=== PATIENT | male | born 2000 | race Caucasian/White ===

== ENCOUNTER 2023-11-08 12:33 | Observation (INO) | payer BC, SELFPAY ==
[2023-11-08] VITALS (92 sets, daily range): BP systolic 89–138; BP diastolic 53–121; PULSE 55–104; RESP 10–30; TEMP 36.7–37.5; O2SAT 94–100
--- NOTE | 2023-11-08 12:30 | RT.EKG_ITS ---
APPROVED REPORT Exam: Resting ECG Reason for Exam: chest pain Patient Location: E HR:71 bpm ECG Measurements Heart Rate 71 AXIS RI 119 P 71 QRSd 72 QRS 71 QT 362 T 57 QTc 393 Conclusion Sinus rhythm...normal P axis, V-rate 60- 99 Low voltage, precordial leads...precordial leads <1.0mV Anterolateral Q wave, probably normal for age...Q >35mS, age<31 male, <40 female Physician: no stemi
--- NOTE | 2023-11-08 13:45 | DI.RAD_ITS ---
Exam(s) XR RIBS LT W PA LAT CHEST EXAM: XR RIBS LT W PA LAT CHEST CLINICAL HISTORY: left rib pain TECHNIQUE: 2D digital imaging was performed. Five images are obtained. COMPARISON: No exams were available for comparison FINDINGS: MEDIASTINUM: Normal. There is no midline shift. HEART: Normal. PULMONARY VASCULATURE: Normal. LUNGS: Clear. PLEURAL SPACE: There is a left pneumothorax. It is to the level of the left 4th rib. No right pneum othorax. No pleural effusion. BONE:Within normal limits for the patient's age. LEFT RIBS: Normal. OTHER FINDINGS:Normal. IMPRESSION: 1. There is a left-sided pneumothorax to the level of the left 4th rib. It is small to moderate in s ize. 2. The lungs are clear. There is no midline shift of the mediastinum. 3. Unremarkable left ribs. DATA REPOSITORY: RADIATION DOSE DELIVERED:
[2023-11-08] MEDS: Ketorolac 15 MG/ML VIAL IVP (14:31)
--- NOTE | 2023-11-08 15:46 | DI.VRAD_ITS ---
Addendum created by Wilfrido Mirza MD on 11/08/2023 3:50:30 PM EDT: THIS REPORT CONTAINS FINDINGS THAT MAY BE CRITICAL TO PATIENT CARE. The findings were verbally communicated via telephone conference with Maureen Petersen at 3:50 PM EDT on 11/08/2023. The findings were acknowledged and understood. Initial report created on 11/08/2023 3:45:33 PM EDT: PROCEDURE INFORMATION: Exam: XR Left Ribs Exam date and time: 11/08/2023 2:12 PM Age: 23 years old Clinical indication: Other: Left rib pain TECHNIQUE: Imaging protocol: Radiologic exam of the left ribs. Views: 2 views. COMPARISON: No relevant prior studies available. FINDINGS: Bones/joints: No acute fracture dislocation. Soft tissues: Normal. IMPRESSION: No rib fracture identified. PROCEDURE INFORMATION: Exam: XR Chest Exam date and time: 11/08/2023 2:12 PM Age: 23 years old Clinical indication: Other: Left rib pain TECHNIQUE: Imaging protocol: Radiologic exam of the chest. Views: 2 views. COMPARISON: No relevant prior studies available. FINDINGS: Lungs: No consolidation. Pleural spaces: Small to moderate left pneumothorax. Heart/Mediastinum: Unremarkable. No cardiomegaly. Bones/joints: Unremarkable. IMPRESSION: Small to moderate left pneumothorax. Dictated and Authenticated by: Wilfrido Mirza MD. Ordering:KATHLEEN Reddy MD
--- NOTE | 2023-11-08 15:55 | ED.GENADUL_ITS ---
Discharge Plan Discharge Details Chief Complaint: Chest/Rib Primary Care Provider: Unknown,Unknown ED Provider: Maureen Geiger General Date/Time Provider Initiated Documentation: 11/08/23 12:41 . HPI Narrative: This otherwise healthy 23-year-old male with history of vaping tobacco use presents with report of rib pain on the left lower side radiating to his back for the past 5 days. He states he felt a clicking and sensation given the pers istence he presented for assessment. He denies any shortness of breath. Denies any fever or chills. Denies any history of early cardiac disease. Denies history of similar symptoms in the past. Adamantly denies any trauma calf pain or swelling. Related Data Allergies Allergy/AdvReac Type Severity Reaction Status Date / Time No Known Allergies Allergy Unverified 11/08/23 12:39 General Stated Complaint: Chest/Rib BINTA: 3 Exam Narrative Exam Narrative: Alert and oriented 23-year-old male in no acute distress, lungs clear to auscultation, cardiac rate rhythm regular, pupils equal round reactive to light and accommodation, cardiac rate rhythm regular, no abdominal tenderness, no peripheral edema or tenderness, neurovascularly intact Course Vital Signs Vital signs: Vital Signs Temperature 36.7 C 11/08/23 12:37 Pulse 76 11/08/23 12:37 Respiratory Rate 16 11/08/23 12:37 Blood Pressure 121/68 11/08/23 12:37 Pulse Oximetry 99 11/08/23 12:37 Temperature 36.7 C 11/08/23 12:37 Temperature Source Temporal Artery Scan 11/08/23 12:37 Pulse 76 11/08/23 12:37 Respiratory Rate 16 11/08/23 12:37 Respiratory Effort Normal 11/08/23 13:44 Respiratory Depth Normal 11/08/23 13:44 Respiratory Pattern Normal 11/08/23 13:44 Blood Pressure 121/68 11/08/23 12:37 Blood Pressure Position Sitting 11/08/23 12:37 Pulse Oximetry 99 11/08/23 12:37 Oxygen Delivery Method Room Air 11/08/23 12:37 Oxygen Flow Rate 0 11/08/23 12:37 Pain Level 7 11/08/23 14:31 Medical Decision Making 23-year-old male presenting with left rib pain for the past 5 days. X-ray was ordered for further evaluation and Toradol was given for pain control. On left rib series, which was ordered secondary to reproducible left lower chest wall pain, patient has approximately 10% pneumothorax. This was confirmed by the radiologist at approximately 1600. Oxygen was placed on patient approximately 20 minutes ago at 1530, he will need repeat x-ray at 1800. 15 L on nonrebreather was placed and we will reassess chest x-ray post supportive care and determine disposition. Care will be transitioned to a [facility] pending repeat x-ray@1600. Quality:[facility] Health Related Social Needs: No Data to Display [facility] Social History Smoking risk assessment performed?: No
--- NOTE | 2023-11-08 16:39 | W.EDPROG ---
Date of service: 11/08/23 Time of Service: 16:00 Medical Decision Making Patient signed out to me by Maureen SOLIS. Patient pending repeat x-ray for pneumothorax of 10% that was spontaneous. Patient risk factors of smoking. Patient in stable condition at time of signout. Will continue to monitor and follow-up on x-ray results when available or treat any change in condition 1808-reviewed repeat imaging which shows no significant change in size of pneumothorax. Rough estimated measurement at the apex is still 3 to 4 cm. Reassessed patient and patient states significant improvement in symptoms compared to initial presentation. Vital signs of remained stable no hypoxia. Will contact general surgery to discuss pigtail chest tube versus continued oxygen and observation admission with repeat imaging in the morning. Spoke to Dr. Jones on-call general surgeon whom recommended pigtail chest tube placement and 24-hour observation after procedure. He requested patient be admitted to the hospitalist and that he would consult on any change in condition of the patient. Please see Dr. Hoa Chan's procedure note for placement of the pigtail chest tube. Surgeon recommended patient admitted to medical services for observation but that he would round in the morning. Dr. Velasquez was consulted and agreed to the admission. X-rays performed before admission shows significant improvement. Quality:SDOH Health Related Social Needs: No Data to Display Exam Const General: cooperative, no acute distress and not ill appearing Orientation: alert, awake and oriented x3 HENMT Mouth: moist mucous membranes Resp Effort & Inspection: normal respiratory effort, able to speak in complete sentences and no respiratory distress Auscultation: diminished lung sounds on the left in the upper lung simmons Cardio Rate: regular rate Rhythm: regular rhythm Heart Sounds: S1 normal and S2 normal Skin General skin exam: no rashes or lesions noted Neuro General: patient alert, patient awake, patient oriented x3, moves all extremities and no focal motor deficits Sensory Exam: no sensory deficits noted Critical Care Time Critical Care Time Critical Care Time: Yes Total Critical Care Time: 45 Attestation: Due to pneumothorax with high probability of imminent or life threatening deterioration in the patient?s condition without intervention and treatment. Time spent documenting, reviewing labs and radiographs, monitoring titration/ Vital signs, and speaking with general surgeon and attending ED physician. Sign Out Sign Out Data: Sign Out Comment: pending repeat xray 1800 Last updated by Maureen Geiger PA at 11/08/23 16:03 Discharge Plan Disposition Patient Disposition: Admit to [facility] Condition: Improving Discharge Details Clinical Impression: Spontaneous pneumothorax Admit Date/Time: 11/08/23 21:38 Admit Provider: Gilmer Velasquez Attending Provider: Gilmer Velasquez Primary Care Provider: Unknown,Unknown ED Provider: Adalid Henriquez
--- NOTE | 2023-11-08 18:00 | DI.RAD_ITS ---
Exam(s) XR CHEST 2V PA LATERAL EXAM: XR CHEST 2V PA LATERAL CLINICAL HISTORY: eval left pneumo TECHNIQUE: 2D digital imaging was performed of the chest. Two images were obtained. PA and lateral views were obtained. COMPARISON: CR,XR XR RIBS LT W PA LAT CHEST from 11/08/2023 FINDINGS: MEDIASTINUM: Normal. HEART: Normal. PULMONARY VASCULATURE: Normal. LUNGS: Clear. PLEURAL SPACE: There is a persistent left pneumothorax. The pneumothorax is seen to the level of the 4th rib. This is unchanged compared to the prior examination. There is no right pneumothorax. No effusion is identified. BONE:Within normal limits for the patient's age. OTHER FINDINGS:Normal. IMPRESSION: Stable left pneumothorax. DATA REPOSITORY: RADIATION DOSE DELIVERED:
--- NOTE | 2023-11-08 18:01 | DI.VRAD_ITS ---
PROCEDURE INFORMATION: Exam: XR Chest Exam date and time: 11/08/2023 5:51 PM Age: 23 years old Clinical indication: Other: Eval left pneumo TECHNIQUE: Imaging protocol: Radiologic exam of the chest. Views: 2 views. COMPARISON: CR XR RIBS LT W PA LAT CHEST 11/08/2023 2:12 PM FINDINGS: Lungs: No consolidation. Pleural spaces: Left pneumothorax. Heart/Mediastinum: Unremarkable. No cardiomegaly. Bones/joints: Unremarkable. IMPRESSION: Persistent small to moderate left pneumothorax, not significantly changed in comparison to earlier same day radiographs. Dictated and Authenticated by: Wilfrido Mirza MD. Ordering:KATHLEEN Reddy MD
[2023-11-08] MEDS: Ketamine 500 MG/10 ML VIAL 54 MG IVP ×2 (19:25→19:40)
--- NOTE | 2023-11-08 19:30 | W.SURGCON ---
Date of service: 11/08/23 Time of Service: 19:30 Assessment and Plan Assessment and plan (1) Spontaneous pneumothorax: Status: Acute Assessment and plan: Patient 23-year-old male with a left-sided spontaneous pneumothorax. I discussed with him and his the nature of the problem and options is to observe without putting a chest tube however since this is a small hospital prefer to put a small and look about and the pigtail drain to drain the pneumothorax and admit him for observation. After discussing this with them patient wants to proceed with the placement of the Pleurx drain. Risks of the procedure which include bleeding and infection as well as misplacement were discussed with the patient who understands. Patient will be done by the emergency room physician under my guidance. History of Present Illness History of Present Illness Chief Complaint: Spontaneous pneumothorax Narrative: Patient is a otherwise healthy 33-year-old thin white male who presented to the emergency room complaining of left-sided chest pain starting at 6 AM this morning associated with pain when he takes a deep breath. He denies any severe bout of coughing or any similar pain in the past. He is not a smoker. Evaluation with a chest x-ray done by the ER physician showed evidence of a spontaneous pneumothorax approximately 3 to 4 cm in size. The patient vitals were within normal and a repeat x-ray few hours later confirmed the same size of the pneumothorax. For that reason I was consulted regarding the need for a small chest tube placement. Consults Consult date: 11/08/23 Review of Systems Narrative: 10 point review of system obtained which is essentially negative other than the history of chest pain and mild shortness of breath. Patient specifically denies any history of coughing, no GI, cardiovascular, urinary or musculoskeletal complaints. All systems reviewed & are unremarkable except as noted in HPI and below PFSH All Active Problems (Updated 11/08/23 @ 19:41 by Jay Jones MD) Spontaneous pneumothorax (Acute) Social History Smoking risk assessment performed?: No Exam Narrative Exam Narrative: Patient is awake and alert, all vitals within normal. He is sitting on the stretcher in a semirecumbent position. He is calm and cooperative. Head and neck exam shows no anemia or jaundice. Neck is supple with no lymphadenopathy and no masses. Patient is a quite thin and when asked to take a deep breath there is good expansion bilaterally. Auscultation showed reduced breath sounds on the left side and posteriorly over the apex. No wheezing. Cardiovascular shows normal sinus rhythm with no murmur. Abdomen is soft and benign, no organomegaly no tenderness. Lower extremities shows no evidence of leg edema with normal circulation. Results Last Vital Signs Temp 98.1 F 11/08/23 12:37 Pulse 65 11/08/23 16:01 Resp 19 11/08/23 16:01 BP 112/70 11/08/23 16:01 Pulse Ox 99 11/08/23 16:01 Imaging Chest x-ray: report reviewed and image reviewed
--- NOTE | 2023-11-08 19:45 | DI.RAD_ITS ---
Exam(s) XR PORTABLE CHEST AP EXAM: XR PORTABLE CHEST AP CLINICAL HISTORY: placement confirmation TECHNIQUE: 2D digital imaging was performed of the chest. One image was obtained. An AP view was ob tained. COMPARISON: CR,XR XR CHEST 2V PA LATERAL from 11/08/2023 FINDINGS: MEDIASTINUM: Normal. HEART: Normal. PULMONARY VASCULATURE: Normal. LUNGS: There is atelectasis of the left upper and left lower lobes. PLEURAL SPACE: There has been an interval increase in size of the left pneumothorax now occupying at least 50 percent of the left hemithorax. No right pneumothorax. No pleural effusion. BONE:Within normal limits for the patient's age. OTHER FINDINGS:There has been interval placement of a pigtail catheter into the left hemithorax. IMPRESSION: 1. Interval increase in size of the left pneumothorax now measuring approximately 50 percent of the l eft hemithorax. 2. Interval placement of a left chest tube. DATA REPOSITORY: RADIATION DOSE DELIVERED:
[2023-11-08] MEDS: Normal Saline 1,000 ML 1000 ML IV (20:05)
--- NOTE | 2023-11-08 20:07 | ED.PROG_ITS ---
Date of service: 11/08/23 Time of Service: 20:07 Medical Decision Making 23-year-old male presents with spontaneous left-sided pneumothorax, approximately 3 to 4 cm from apex, after period of observation and oxygen therapy pneumothorax has not improved in size. Discussed case with general surgeon who recommends placing pigtail catheter. Patient consented to sedation with ketamine as well as pigtail catheter placement. During procedure did hit some resistance in the soft tissue of the chest remove the wire briefly with needle in place I suspect this is the etiology of the increased size of pneumothorax seen on repeat x-ray however patient is oxygenating normally is hemodynamically stable he has improved lung sounds upon reassessment with good titling and bubbling of Pleur-evac. General surgeon has come to the bedside to assess patient and will follow closely upon inpatient admission. Will repeat chest x-ray in 1 hour to assess for any change. Fluids have been running, patient coming back to baseline from ketamine sedation. 20: 22 patient was comfortably hemodynamically stable. Bedside ultrasound showing good lung sliding at the apex on the left. Will perform repeat chest x- ray to confirm reexpansion at 2100 20: 47 repeat x-ray showing near full expansion of left lung, patient resting comfortably. Patient to be admitted to ICU for close monitoring of chest to hemodynamics and respiratory status Quality:SDOH Health Related Social Needs: No Data to Display Procedures Chest Tube Chest Tube 1: Chest Tube Location: anterior axillary line Chest Tube Prep: betadine prep (Chlorhexidine prep), sterile drapes applied and sterile dressing applied Local Anesthetic: Lidocaine 1% Amount of anesthesia used (mL): 3 Incision Made With: #11 blade Post Procedure: sutured to skin and sterile dressing applied Post Procedure CXR?: Yes Patient Tolerated Procedure: Yes Progress: Upon initial introduction of introducer wire met resistance in the soft tissue with kinking of the wire removed wire with needle in place, replaced syringe and assessed for bubbling upon advancement, replaced wire through introducer needle, was able to successfully place chest tube, upon repeat x-ray pneumothorax appears to have expanded likely related to the time when introducer needle was in the chest wall without syringe attached while wire was being rethreaded, no signs of tension physiology patient remains normoxic without supplemental oxygen returning to baseline after ketamine sedation, good lung sounds bilaterally increased lung sounds from prior on affected side good titling in Pleur-evac with bubbles, tubing secured will obtain repeat x-ray in 1 hour Procedural Sedation Presedation Evaluation: chest tube placement ASA Class: I Preparation: secured entrance monitor applied, pulse oximeter, capnometry used, suction/airway equipment at bedside and IV secured Ketamine dose (mg): 54 Complications: none Additional Comments: Patient tolerated sedation and procedure, coming back to baseline currently remains hemodynamically stable not requiring any supplemental oxygen or airway intervention Sign Out Sign Out Data: Sign Out Comment: pending repeat xray 1800 Last updated by Maureen Geiger PA at 11/08/23 16:03 Discharge Plan Disposition Patient Disposition: Admit to [facility] Condition: Improving Discharge Details Chief Complaint: Chest/Rib Clinical Impression: Spontaneous pneumothorax Primary Care Provider: Unknown,Unknown ED Provider: Adalid Henriquez Home Meds and New Rx's Prescriptions: No Action No Known Home Meds
--- NOTE | 2023-11-08 20:15 | DI.RAD_ITS ---
Exam(s) XR PORTABLE CHEST AP POST LINE EXAM: XR PORTABLE CHEST AP POST LINE CLINICAL HISTORY: post chest tube placement TECHNIQUE: 2D digital imaging was performed of the chest. One image was obtained. An AP view was ob tained. COMPARISON: CR,XR XR PORTABLE CHEST AP from 11/08/2023 FINDINGS: MEDIASTINUM: Normal. HEART: Normal. PULMONARY VASCULATURE: Normal. LUNGS: There is been expansion of the left lung without infiltrate. The right lung remains clear and well expanded. PLEURAL SPACE: There has been significant decrease in size of the left pneumothorax with a tiny resid ual left apical pneumothorax located above the left 3rd rib. BONE:Within normal limits for the patient's age. OTHER FINDINGS:The left chest tube is present along the lateral aspect of the left mid hemithorax. IMPRESSION: 1. Decrease in size of the left pneumothorax with a tiny residual left apical pneumothorax present. 2. Interval re-expansion of the left lung. DATA REPOSITORY: RADIATION DOSE DELIVERED:
[2023-11-08] MEDS: HYDROmorphone 2 MG/ML SYR 0.5 MG IVP (20:25)
--- NOTE | 2023-11-08 20:30 | DI.VRAD_ITS ---
Addendum created by Sha Lacey MD on 11/08/2023 8:35:12 PM EDT: THIS REPORT CONTAINS FINDINGS THAT MAY BE CRITICAL TO PATIENT CARE. The findings were verbally communicated via telephone conference with Dr. Gardner at 8:34 PM EDT on 11/08/2023. The findings were acknowledged and understood. Initial report created on 11/08/2023 8:30:24 PM EDT: PROCEDURE INFORMATION: Exam: XR Chest Exam date and time: 11/08/2023 7:54 PM Age: 23 years old Clinical indication: Other: Placement confirmation TECHNIQUE: Imaging protocol: Radiologic exam of the chest. Views: 1 view. COMPARISON: CR XR CHEST 2V PA LATERAL 08/11/2023 17:51 FINDINGS: Tubes, catheters and devices: Interim placement of a pigtail thoracotomy tube with the tip overlying the mid left thoracic cavity. Lungs: There is no evidence of focal pulmonary consolidation. Pleural spaces: A large left pneumothorax is identified of greater than 50% of the left lung volume larger than on the comparison examination. Heart/Mediastinum: Normal in size. Bones/joints: No acute fracture is identified. IMPRESSION: 1. A pigtail thoracotomy tube with the tip overlying the mid left thoracic cavity. 2. A large left pneumothorax greater than is present of the left lung volume i the the the the the the s present. Dictated and Authenticated by: Sha Lacey MD. Ordering:HANNAH Cordoba MD
--- NOTE | 2023-11-08 21:20 | DI.VRAD_ITS ---
PROCEDURE INFORMATION: Exam: XR Chest Exam date and time: 11/08/2023 8:45 PM Age: 23 years old Clinical indication: Other: Post chest tube placement TECHNIQUE: Imaging protocol: Radiologic exam of the chest. Views: 1 view. COMPARISON: XR PORTABLE CHEST AP 08/11/2023 19:54 FINDINGS: Tubes, catheters and devices: Redemonstration of the pigtail thoracotomy catheter overlying the periphery of the mid left hemithorax. Lungs: There has been interim complete re-expansion of the lung. No pulmonary consolidation. Pleural spaces: No pleural effusion or pneumothorax. Heart/Mediastinum: Normal in size. Bones/joints: No acute fracture is identified. IMPRESSION: Complete re-expansion of the left lung following placement of the left pigtail thoracotomy catheter. Dictated and Authenticated by: Sha Lacey MD. Ordering:CONNOR Roe MD
--- NOTE | 2023-11-08 21:27 | HPE_ITS ---
Date of service: 11/08/23 Time of Service: 21:27 Assessment and Plan Assessment and plan (1) Spontaneous pneumothorax: Status: Acute Assessment and plan: Spontaneous pneumothorax, now re-expanded with chest tube in place. Will leave tube to suction per surgical input and further management per surgery. No medical issues at this time. History of Present Illness History of Present Illness Chief Complaint: CP Narrative: 23 male reports sudden onset sharp left sided chest pain last night. In ER evaluation demonstrated 10% PTX on left. After period of observation with no improvement surgery was consulted and advised chest tube. Tube placed with some difficulty, and post-procedure showed increase PTX approx 50%, but after suction lung fully re-expanded. I was asked to evaluate for admission. At present time patient states that other than some discomfort at insertion site he feels fine. 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 Declines to admit patient and requests that I admit to Medicine with consult to Surgery for management of chest tube. Review of Systems Narrative: per HPI PFSH All Active Problems (Updated 11/08/23 @ 21:33 by Bhupinder Vázquez MD) Spontaneous pneumothorax (Acute) Social History Smoking risk assessment performed?: No Meds Allergies and Home Medications Allergies Allergy/AdvReac Type Severity Reaction Status Date / Time No Known Allergies Allergy Unverified 11/08/23 12:39 Home Medications Medication Instructions Recorded Confirmed Type Unknown [No Known Home Meds] 11/08/23 11/08/23 History Exam Narrative Exam Narrative: 133/79, 87, 36.7, 20 95% RA. HEENT unremarkable; neck supple, trachea mid-line; lungs clear with equal BS bilaterally; heart RRR; abdomen soft and NT; extremities w/o edema; neuro Ox3, lucid, moves all 4s Results Last Vital Signs Temp 36.7 C 11/08/23 12:37 Pulse 87 11/08/23 20:32 Resp 20 11/08/23 20:32 BP 133/79 11/08/23 20:32 Pulse Ox 95 11/08/23 20:32 Time Spent Time spent with Patient: 40-54 minutes Time was spent: preparing to see the patient(eg.review tests), obtaining and/or reviewing separately otained hiistory, ordering medications,tests, procedures, referring, communicating with other health medicare compliance auditor and indepentently interpreting results
[2023-11-09] VITALS (14 sets, daily range): BP systolic 101–126; BP diastolic 62–78; PULSE 50–79; RESP 11–21; TEMP 36.5–37.2; O2SAT 95–98
--- NOTE | 2023-11-09 08:47 | PGE_ITS ---
Date of Service Date of service: 11/09/23 Time of Service: 08:47 Assessment and Plan Assessment and plan (1) Spontaneous pneumothorax: Status: Acute Assessment and plan: Spontaneous pneumothorax, now re-expanded with chest tube in place. 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 No other medical issues, so will pass off to Surgery to manage this case, confirmed with Dr. Lowe. Subjective Subjective Patient reports: no new complaints; denies nausea, vomiting or fever Interval history since last seen: He is comfortable at rest, mild pain with deep breath. He didn't like feeling of ketamine when the tube went in. No SOB at rest Exam Narrative Exam Narrative: HEENT unremarkable; neck supple, trachea mid-line; lungs clear, no rales/wheeze but less audible on left; heart RRR; abdomen soft and NT; extremities w/o edema Objective Last Vital Signs Temp 36.5 C 11/09/23 07:28 Pulse 60 11/09/23 07:01 Resp 16 11/09/23 07:28 BP 121/78 11/09/23 07:01 Pulse Ox 95 11/09/23 07:28 PAWSS Have you Been Recently Intoxicated or Drunk Within the Last 30 days?: No Have you Ever Experienced Previous Episodes of Alcohol Withdrawal?: No Have you ever Experienced Withdrawal Seizures?: No Have you ever Experienced Delirium Tremens(DT)s?: No Have you ever undergone Alcohol Rehabilitation Treatment (i.e, inpt ot outpatient treatment programs)?: No Have you ever Experienced Blackouts?: No Have you ever Combined Alcohol with other Downers within the last 90 days?: No Have you ever Combined Alcohol with any other Substance of Abuse during the last 90 days?: No Positive Blood Alcohol level on Presentation? [PCS.BAL]: No Evidence of Increased Autonomic Activity (i.e. HR>120, tremor, sweating, agitation, nausea)?: No Result: 0 Time Spent with Patient Time Spent with Patient: 25-34 minutes Time was spent: preparing to see the patient(eg.review tests), obtaining and/or reviewing separately otained hiistory and referring, communicating with other health spiritual care coordinator
--- NOTE | 2023-11-09 08:53 | DI.RAD_ITS ---
Exam(s) XR PORTABLE CHEST AP EXAM: XR PORTABLE CHEST AP CLINICAL HISTORY: f/u ptx TECHNIQUE: 2D digital imaging was performed of the chest. One image was obtained. An AP view was ob tained. COMPARISON: CR,XR XR PORTABLE CHEST AP POST LINE from 11/08/2023 FINDINGS: MEDIASTINUM: Normal. HEART: Normal. PULMONARY VASCULATURE: Normal. LUNGS: Clear. PLEURAL SPACE: There is again seen a left chest tube which is stable in position. No demonstrable pn eumothorax is identified. There is a question of a tiny pneumomediastinum to the left of the trachea . No pleural effusion. No right pneumothorax. BONE:Within normal limits for the patient's age. OTHER FINDINGS:Normal. IMPRESSION: 1. No demonstrable pneumothorax persists on the left. 2. Question of a tiny pneumomediastinum to the left of the trachea. 3. Left chest tube is stable in position. DATA REPOSITORY: RADIATION DOSE DELIVERED:
--- NOTE | 2023-11-09 10:02 | INITIAL_ITS ---
Date of service: 11/09/23 Time of Service: 10:02 Care Management Initial Assmt Initial Assessment Reason for Hospitalization: Pneumothorax Functional Status/Living Situation Patient Presentation: Maycol was lying in bed when CM met with him. His , Halina, was visiting. Maycol stated that he is feeling good today, and is hoping to be discharged home soon. Per RN, waiting for surgeon to determine if he is ready to have the chest tube removed; if so, he will likely return home. Maycol stated that he has a lot of family/friend support in the community, is independent, and does n ot anticipate requiring any services upon discharge. CM will continue to follow. Town of Residence: [facility] Resides with: Spouse (Halina) Natural Supports: friends/family locally Employment Status: Employed ([employer]) Instrumental Activities of Daily Living (ADLs): Independent Medications Medication Management: No Issues/Barriers identified Advance Directives Advance Directives: Do you have an Advance Directive: N 11/08/23 12:38 AD On File at [facility]: N 11/08/23 12:38 Date Asked 11/08/23 11/08/23 12:38 AD Date Reviewed COLST On File at [facility] COLST Date Scanned Code Status Resuscitation Status Full Code Insurance Coverage/Financial Issues Insurance: BC/BS ACO Member: No Care Team Visit Care Team Role Provider Type Unknown Unknown Primary Care Provider STAFF PHYSICIAN Karin Olivas MD Other Providers NON-[facility] STAFF PHYSICIAN WILL Redding Other Providers PHYSICIANS ASSISTANT Jay Jones MD Other Providers CONSULTING PHYSICIAN Navi Mcginnis MD Other Providers CONSULTING PHYSICIAN Efra Rosado, DO Other Providers CONSULTING PHYSICIAN Dion Coronel MD Other Providers [facility] STAFF PHYSICIAN Ramon Zhou Other Providers CONSULTING PHYSICIAN Wil Starr MD Other Providers CONSULTING PHYSICIAN Dalia Lowe, DO Other Providers OSTEOPATHIC DOCTOR Nanci Reed, DO Other Providers CONSULTING PHYSICIAN Paresh Wilson MD Other Providers CONSULTING PHYSICIAN Gucci Roach, DO Other Providers CONSULTING PHYSICIAN Candice Francis Other Providers NON-[facility] STAFF PHYSICIAN Dequan Franks MD Other Providers [facility] STAFF PHYSICIAN Yuli Childress, DO Other Providers OSTEOPATHIC DOCTOR Issac Canseco, DO Other Providers OSTEOPATHIC DOCTOR Sherri Avalos MD Other Providers [facility] STAFF PHYSICIAN Adalid Henriquez NP Emergency Provider NURSE PRACTITIONER Gilmer Velasquez MD Admit Provider MD FRIEND STAFF PHYSICIAN Attending Provider Discharge Potential Discharge Needs: Consult Consult Services Needed: Other (surgical consult), PCP F/U Appt and Surgical F/U Appt Anticipated Barriers to Discharge: Medical Status Patient/Family Education Needs: Review discharge instructions, discuss Ask Me Three Transportation: Private vehicle Plan: Anticipate Maycol will return home once medically cleared. His will drive him home via private vehicle. He will follow up with the customer service and sales consultant provider (Dr. Gonsales, [facility]), and his discharge plan of care. CM will continue to follow. PFSH All Active Problems (Updated 11/08/23 @ 21:33 by Bhupinder Vázquez MD) Spontaneous pneumothorax (Acute) Social History Smoking risk assessment performed?: No Housing: house SDOH(Care Management) Screening Will the Patient Participate in the Screening?: Yes Do you worry about having a steady place to live?: no Problems where you live: no known problems In the past 12 months, have you had to go without electric, gas, oil or water in your home?: no Have you or anyone in your house had to go without enough food to eat?: no Has lack of transportation kept you from medical appointments or from doing things needed for daily living?: no Has anyone in your support network made you feel unsafe for any reason?: no
--- NOTE | 2023-11-09 11:20 | PHA.REVIEW2 ---
Pharmacy Admission Review Admission Clinical Review Admission Pharmacy Review: Spontaneous pneumothorax (Acute) No Known Allergies Allergy (Unverified 11/08/23 12:39) Resuscitation Status Full Code Height 5 ft 8 in Weight 50 kg Comments Comments/Follow Ups: Per morning meeting, patient is medically cleared and is now a surgery patient. Pharmacy Admission Review Renal Dosing Medications needing adjustments: Reviewed (No labs available to assess kidney function) Anticoagulation DVT Prophylaxis: Reviewed (None at this time) Opiate Usage Evaluate Pain Scale/Pains Meds: Reviewed (PRN oxycodone - no doses given so far) Scheduled Bowel Reg ordered if on Opiates?: No Relevant Labs Electrolytes, C-Reactive P, ESR: Reviewed (No labs for today so far) Cardiac Review BP, HR, EF%: Reviewed (BP 121/78 and HR 60) QTc Review QTc: Reviewed (393 from 11/08/23) IV to PO Switch IV Medications: Reviewed Home Meds Home Med List reviewed: Reviewed (No known home medications) Current Meds Current Medication Order Review: Reviewed Comments Comments/Follow Ups: Per morning meeting, patient is medically cleared and is now a surgery patient.
[2023-11-09] MEDS: Acetaminophen 500 MG TAB 1000 MG PO (15:28)
--- NOTE | 2023-11-09 16:56 | W.PM.PROGNOT ---
Date of Service Date of service: 11/09/23 Time of Service: 16:56 Assessment and Plan Assessment and plan (1) Spontaneous pneumothorax: Status: Acute Assessment and plan: -Patient is doing well from a pneumothorax standpoint. He has no pain. He has no trouble shortness of breath. Most likely remove tube tomorrow and then DC Encourage incentive spirometry -We discussed the importance of avoiding any combustible product nicotine or THC. And offered him help with smoking cessation -We will obtain a chest CT to look for severity of blebs Transfer to [facility] and continue supportive care This document was created with voice activated software and may contain errors. 20 mins spent in direct pt care and 20 in non face to face time (2) Vapes nicotine containing substance: Status: Acute Subjective Subjective Interval history since last seen: Pt is doing well. no headaches. No CP or SOB. no productive cough. no dysuria. no leg pain or swelling. Patient has been up walking around. He is having no chest pain. He is having no shortness of breath. He has had no drainage from his tube. Chest x-ray shows his x-ray was up. This is his first pneumothorax. He does vape. Exam Narrative Exam Narrative: PHYSICAL EXAM GENERAL APPEARANCE: Alert, healthy appearance, oriented, x 3,? in no acute distress HYDRATION: Well hydrated HEAD, EYES, EARS, NECK, THROAT: Head is normocephalic, pupils equal, round, reactive to light and accommodation, ocular movement intact, sclera clear and no jaundice. ?Dentition intact. LUNGS: normal respiration/normal chest excursion. ?Clear to auscultation bilaterally. ?No wheeze. ?HEART: Regular rate and rhythm. no murmurs ABDOMEN: soft and non-tender Objective Last Vital Signs Temp 36.6 C 11/09/23 14:08 Pulse 60 11/09/23 07:01 Resp 16 11/09/23 07:28 BP 121/78 11/09/23 07:01 Pulse Ox 95 11/09/23 07:28 PAWSS Have you Been Recently Intoxicated or Drunk Within the Last 30 days?: No Have you Ever Experienced Previous Episodes of Alcohol Withdrawal?: No Have you ever Experienced Withdrawal Seizures?: No Have you ever Experienced Delirium Tremens(DT)s?: No Have you ever undergone Alcohol Rehabilitation Treatment (i.e, inpt ot outpatient treatment programs)?: No Have you ever Experienced Blackouts?: No Have you ever Combined Alcohol with other Downers within the last 90 days?: No Have you ever Combined Alcohol with any other Substance of Abuse during the last 90 days?: No Positive Blood Alcohol level on Presentation? [PCS.BAL]: No Evidence of Increased Autonomic Activity (i.e. HR>120, tremor, sweating, agitation, nausea)?: No Result: 0 Time Spent with Patient Time Spent with Patient: 35-49 minutes Time was spent: preparing to see the patient(eg.review tests), obtaining and/or reviewing separately otained hiistory, ordering medications,tests, procedures, referring, communicating with other health team primary care physician, indepentently interpreting results, counseling the patient and care coordination
[2023-11-09] MEDS: oxyCODONE 5 MG TAB PO (17:44)
[2023-11-10 03:01] VITALS: BP 106/65; PULSE 59; RESP 18; TEMP 37.2; O2SAT 97
[2023-11-10] MEDS: Normal Saline - Diluent 50 ML VIAL IJ (06:31)
[2023-11-10] MEDS: Omnipaque 350 MG/ML 100 ML BTL IJ (06:33)
[2023-11-10] MEDS: Normal Saline Flush 10 ML SYR IVP (06:38)
[2023-11-10 07:15] VITALS: BP 104/70; PULSE 64; RESP 17; TEMP 37.2; O2SAT 97
--- NOTE | 2023-11-10 08:23 | DI.RAD_ITS ---
Exam(s) XR CHEST 2V PA LATERAL EXAM: XR CHEST 2V PA LATERAL CLINICAL HISTORY: spont ptx/blebs TECHNIQUE: 2D digital imaging was performed. Two views. COMPARISON: CR,XR XR PORTABLE CHEST AP POST LINE from 11/08/2023 CR XR PORTABLE CHEST AP from 11/09/2023 FINDINGS: No change in position left-sided chest tube. No visible pneumothorax. HEART: Normal size. Aorta: Not dilated. PULMONARY VASCULATURE: Normal. MEDIASTINUM: LUNGS: Clear. PLEURAL SPACE: No pleural effusion or pneumothorax. BONE:Unremarkable for age. SOFT TISSUES: Unremarkable. IMPRESSION: No visible pneumothorax. DATA REPOSITORY: RADIATION DOSE DELIVERED:
--- NOTE | 2023-11-10 08:34 | TELEFU_ITS ---
Date of service: 11/10/23 Time of Service: 08:34 Nutrition Note NOTE: Checked in with Maycol as his BMI is low for his age at 16.8kh/m2. He is admitted due to spontaneous pneumothorax most likely due to vaping. He states no concerns with N/V/C/D, eating and tolerating normal diet, no co ncerns for chewing/swallowing. He states he eats regularly at home, and has always been on the real skinny side - he relates that he has no concerns with unintentional weight loss or food insecurity. No food allergies or special nutrition needs per patient. Offered outpatient nutrition services if he ever has concerns with his weight. Will continue to monitor labs, weight, po intake Time Spent in Nutritional Counseling and Treatment: 5 minutes
[2023-11-10 12:00] VITALS: BP 108/81; PULSE 62; RESP 17; TEMP 37.3; O2SAT 98
--- NOTE | 2023-11-10 12:44 | W.PM.DS.N ---
Date of service: 11/10/23 Time of Service: 15:00 DS: Diagnosis Discharge Diagnosis (1) Spontaneous pneumothorax: Status: Acute (2) Vapes nicotine containing substance: Status: Acute Discharge Plan Disposition Patient Disposition: Home Condition: Improving Condition: Improving Discharge Details Reason For Visit: Pneumothorax Admit Date/Time: 11/08/23 21:38 Admit Provider: Gilmer Velasquez Attending Provider: Gilmer Velasquez Primary Care Provider: Unknown,Unknown Hospital Course Hospital Course: Patient was admitted on 11/07 with a spontaneous pneumothorax. He had a chest tube placed. The pneumothorax has resolved and post removal chest x-ray shows lung is inflated. He does have a history of vaping nicotine and we discussed the importance of smoking cessation. He will be discharged home with instructions and wound care/activity/warning signs. He will follow-up in clinic in 2 weeks. Continue to do incentive spirometry. We do need to get a CT of the chest at some point to see how extensive the blebs are in his lungs. Unfortunately our CT scanner is down so we we will need to do this as outpatient. If he has any increased pain shortness of breath he should return to the emergency room. Patient stresses understanding of the orders and discharged in stable and satisfactory condition. Home Meds and New Rx's Prescriptions: No Action No Known Home Meds Discharge Instructions Additional Instructions: ACTIVITY: The day of surgery should be spent resting. However, you can be up for short periods of time, I.E., going to the bathroom or kitchen. Avoid lifting or straining. On the day following surgery, you can be up and about as desired. ? LIFTING: Restrict your lifting to no more than 10 pounds for one weeks after procedure. ?? No sexual activity for 1 weeks.? ? DIET: There are no dietary restrictions following surgery. ? INCISION CARE: You can remove dressing on Thursday. You do not need to keep a dressing on after that time. If the wound rubs on clothing and is irritating you can just keep a Band-Aid on the wound. Either cover the dressing to shower with plastic wrap or sponge bath until Thursday. ?An ice bag may be applied to the incision for 72 hours following surgery. ? SIGNS OF INFECTION: It is not unusual to have some black and blue discoloration of the skin around the incision.? ?It will slowly disappear. If you have any increased redness, drainage, fever (above 100 degrees), please contact your doctor for an examination. ? DISCOMFORT: You may expect to have some mild discomfort at the incision sight. If severe pain develops you should contact your doctor for further instructions. ? DRIVING: NO driving for 24 hours. ? MEDICATIONS: Alternate Tylenol 1000mg by mouth every 8 hours and Ibuprofen 600mg every 6 hours. ?Make sure you take ibuprofen with food and not on an empty stomach. ?Take the Tylenol and ibuprofen as needed for pain. Use ICE for pain as well. Make sure you are moving your bowels daily. If not, take Miralax or Milk of Magnesia.?? ? REPORT: Unusual swelling, severe pain, unresolved nausea, signs of infection, or difficulty in urination to your surgeon. Follow up in clinic in 2 weeks.? [phone] He will need to go to the hospital and have a chest x-ray prior to the appointment. We will set up a CT scan as an outpatient. Activity:: See above Equipment/Supplies:: No Equipment Needed Diet:: As Tolerated Discharge Orders Discharge Orders: Discharge Order (Routine); Ordered 11/10/23 Ordered By: Dalia Lowe DS: Summary Time Spent with Patient providing and/or coordinating discharge services: Less than 30 minutes Status at Discharge Functional status at discharge: independent ambulation Overall status at discharge: patient is progressing back to baseline Mental Status: mental status grossly normal Speech and Movement: speech and movement normal Mood: congruent mood Affect: normal affect Quality:SDOH Health Related Social Needs: No Data to Display Exam Psych Mental Status: mental status grossly normal Speech and Movement: speech and movement normal Mood: congruent mood Affect: normal affect DS: Data Vitals/I&O Vitals and I&O: Vital Signs Temperature 37.3 C 11/10/23 12:00 Temperature Source Skin 11/10/23 12:00 Pulse 62 11/10/23 12:00 Pulse Rhythm Regular 11/10/23 09:22 Pulse 60 11/09/23 07:01 Respiratory Rate 17 11/10/23 12:00 Respiratory Effort Normal, Non-Labored 11/10/23 09:22 Respiratory Depth Normal 11/10/23 09:22 Respiratory Pattern Normal 11/10/23 09:22 Blood Pressure 108/81 11/10/23 12:00 Blood Pressure Mean 91 11/09/23 07:01 Blood Pressure Position Sitting 11/08/23 12:37 Pulse Oximetry 98 11/10/23 12:00 Respiratory End-tidal CO2 41 11/08/23 22:15 Oxygen Delivery Method Room Air 11/10/23 12:00 Oxygen Flow Rate 0 11/10/23 12:00 Pain Level 0 11/10/23 07:15 Intake & Output 11/09/23 11/10/23 11/10/23 23:59 11:59 23:59 Intake Total 360 / 360 Balance 360 / 360 Intake: Oral 360 / 360 Other: Urine Appearance Clear Comment pT stated he hasn't yet this morning but did last night. Voiding Methods Toilet PFSH All Active Problems (Updated 11/08/23 @ 21:33 by Bhupinder Vázquez MD) Vapes nicotine containing substance (Acute) Spontaneous pneumothorax (Acute) Social History Smoking risk assessment performed?: No Housing: house Time Spent with Patient Time Spent with Patient: <45 minutes Time was spent: preparing to see the patient(eg.review tests), obtaining and/or reviewing separately otained hiistory, ordering medications,tests, procedures, indepentently interpreting results, counseling the patient and care coordination
--- NOTE | 2023-11-10 14:30 | DI.RAD_ITS ---
Exam(s) XR CHEST 2V PA LATERAL EXAM: XR CHEST 2V PA LATERAL CLINICAL HISTORY: Follow-up x-ray. Tube has been removed. TECHNIQUE: 2D digital imaging was performed. Two views. COMPARISON: CR XR CHEST 2V PA LATERAL from 11/10/2023 FINDINGS: The left chest tube has been removed. No pneumothorax is visible. The lungs are clear. IMPRESSION: No visible pneumothorax status post removal of left chest tube. DATA REPOSITORY: RADIATION DOSE DELIVERED:
[2023-11-10 15:24] VITALS: BP 103/64; PULSE 86; RESP 17; TEMP 37.4; O2SAT 97
--- NOTE | 2023-11-10 17:25 | PDOC.CMDIS ---
Date of service: 11/10/23 Time of Service: 17:25 LACE Index Scoring Tool Questions: Length of Stay (in days): 2 Was the patient admitted via the E.D.?: Yes E.D. Visits: 0 Answers: Total Score: 5 Risk of Readmission: Low Risk Care Management Discharge Plan Reason for Hospitalization: pneumothorax Discharge Plan: Maycol returned home today with no new services. His drove him home via private vehicle. He will follow up with surgical services and his discharge plan of care. He is happy to be going home. Patient/Family Education Needs: Review discharge instructions and limitations, discussion of self care needs including ask me three. [facility] Health Related Social Needs: No Data to Display
--- NOTE | 2023-11-10 17:45 | NUR.NOTE ---
Nursing Note: Pt has all personal belongings, has no further questions regarding DC instructions. ambulated to main entrance with staff and DC home with friend via private vehicle
== END 2023-11-10 16:16 | disposition home or self-care (01) ==
LOC: ER 21:33 → ICU 22:31 → MS 11-09 17:38
PROVIDERS: Admitting Provider General Practice; Emergency Provider Nurse Practitioner Family; Visit Provider General Practice
DX: J93.83 Other pneumothorax (principal); F17.290 Nicotine dependence, other tobacco product, uncomplicated
CPT/HCPCS: 32554; 00123; 36415; 71045; 93005; 96374; 96375; 99291; 71046; 71100; 93010; 99222; 99231; G0378; J1170; J1885; J3490

== ENCOUNTER 2023-11-13 22:00 | Inpatient (IN) | payer BC, SELFPAY ==
[2023-11-13] VITALS (18 sets, daily range): BP systolic 132–170; BP diastolic 92–110; PULSE 66–130; RESP 14–35; TEMP 36.9; O2SAT 95–100
--- NOTE | 2023-11-13 22:00 | RT.EKG_ITS ---
APPROVED REPORT Exam: Resting ECG Reason for Exam: short of breath Patient Location: E HR:63 bpm ECG Measurements Heart Rate 63 AXIS PA 132 P 54 QRSd 78 QRS 59 QT 397 T 62 QTc 408 Conclusion Sinus rhythm...normal P axis, V-rate 60- [address] segment or t wave abnormalities to suggest occlusive NE
--- NOTE | 2023-11-13 22:22 | ED.GENADUL_ITS ---
Discharge Plan Disposition Patient Disposition: Admit to [facility] Condition: Serious Discharge Details Clinical Impression: Spontaneous pneumothorax Admit Date/Time: 11/14/23 00:34 Admit Provider: Dion Coronel Attending Provider: Dion Coronel Primary Care Provider: Unknown,Unknown ED Provider: Zoie Roblero Discharge Data Discharge Date/Time-TO BE ENTERED AT DEPARTURE: 11/14/23 01:23 HPI General Mode of arrival: ambulatory . Date/Time Provider Initiated Documentation: 11/13/23 22:03 . Limitations to Documentation: no limitations . Information obtained by: patient and old records reviewed . HPI Narrative: 23yo M with hx spontaneous pneumothorax, recent hospital admission for same with pigtail placed at that time, discharged earlier this week, presenting with left chest/back pain identical his symptoms with his pneumothorax. Increased pain with inspiration. No difficulty breathing. No trauma. He is otherwise in his usual state of health with no fevers, chills, rash, nausea, vomiting, abdominal pain, LE edema, or other concerns. Father also with hx of spontaneous pneumothorax. Related Data Home Medications Medication Instructions Recorded Confirmed Unknown [No Known Home Meds] 11/08/23 11/13/23 Allergies Allergy/AdvReac Type Severity Reaction Status Date / Time No Known Allergies Allergy Unverified 11/13/23 22:27 General Stated Complaint: RespSymp BINTA: 2 Review of Systems Narrative: see HPI Exam Narrative Exam Narrative: General: Alert, well appearing, well nourished, in no acute distress. Head: Normocephalic, atraumatic Neck: Trachea midline, ?Neck supple. Cardiac: ?RRR, no murmurs appreciated Resp: No respiratory distress. Absent breath sounds left apex. Chest: ~2mm incision to left chest wall, edges well approximated, dressing C/D/I, no surrounding signs of infection Abd: ?Soft, non-distended, nontender Extremities: ?No deformities.? No peripheral edema. Neurologic: GCS 15. ? Moves all extremities freely against gravity Course Vital Signs Vital signs: Vital Signs Temperature 36.9 C 11/13/23 22:04 Pulse 66 11/13/23 22:04 Respiratory Rate 18 11/13/23 22:04 Blood Pressure 138/96 H 11/13/23 22:04 Pulse Oximetry 100 11/13/23 22:04 Temperature 36.9 C 11/13/23 22:04 Temperature Source Temporal Artery Scan 11/13/23 22:04 Pulse 66 11/13/23 22:04 Respiratory Rate 18 11/13/23 22:04 Blood Pressure 138/96 H 11/13/23 22:04 Blood Pressure Position Supine 11/13/23 22:04 Pulse Oximetry 100 11/13/23 22:04 Oxygen Delivery Method Room Air 11/13/23 22:04 Oxygen Flow Rate 0 11/13/23 22:04 Procedures Chest Tube Chest Tube 1: Chest Tube Location: anterior axillary line Size of Turkmen Tube (mm): 14 Chest Tube Prep: betadine prep and sterile drapes applied Local Anesthetic: Lidocaine 2% Amount of anesthesia used (mL): 3 Incision Made With: #11 blade Post Procedure: sutured to skin and sterile dressing applied Tube Drainage: air Post Procedure CXR?: Yes Patient Tolerated Procedure: Yes Complications: pain Medical Decision Making 23yo M with hx spontaneous pneumothorax, recent hospital admission for same with pigtail placed at that time, discharged earlier this week, presenting with left chest/back pain identical his symptoms with his pneumothorax. Vital signs reassuring on arrival. Normal O2 sat. No respiratory distress. Does have absent breath sounds left apex, incision to left chest wall healing well. Most likely recurrence of pneumothorax. No indication of tension physiology. Placed 100% O2 NRB to encourage reabsorption. EKG on arrival SR, appropriate intervals, no ST segment or T wave abnormalities to suggest occlusive VA. CXR independently reviewed, left apical pneumothorax on my view, agree with radiology read below. Patient expressed that he does not want another chest tube; I advised him that I would discuss with surgery. Labs reviewed as below, CBC with no leukocytosis or anemia, CMP with no actionable abnormalities, VBG with slight hypercapnea likely 2/t shallow breathing 2/t pain. Discussed wtih Dr. Coronel from surgery, strongly advised chest tube placement. Discussed this with patient and he agrees to pigtail placement after risks/benefits discussed and informed consent. Pigtail placed under conscious sedation with ketamine (see procedure note by Dr. Padilla) without complication. Post procedure film obtained; pigtail in good position on my view (radiology read pending). Given tylenol, toradol, 50mcg fentanyl, and zofran post-procedure. Admitted under Dr. Coronel; transferred to the floor. Medical Records Medical records reviewed: Yes I reviewed the patient's medical records. Medical records narrative: H&P and discharge summary most recent [facility] admission, plain films chest from that admission. Imaging Data Radiologic Study: Imaging: X-Ray Radiologist's impression: IMPRESSION: Interval recurrence of left apical pneumothorax as described above. Estimated pneumothorax volume percentage is 27.70%. This suggests a large pneumothorax. It will take approximately 13 days for the pneumothorax to resolve at the rate of 2.2% per day Lab Data Lab results reviewed: Yes I reviewed the patient's lab results. Labs: Laboratory Tests Range/Units 11/13/23 22:37 WBC (4.4-10.8) 10^3/uL 9.37 RBC (4.36-5.78) 10^6/uL 5.27 Hgb (13.5-17.5) g/dL 15.9 Hct (40.0-50.0) % 45.3 MCV (80-95) fL 86 MCH (27.0-33.0) pg 30.2 MCHC (32.0-36.0) % 35.1 RDW (11.8-14.1) % 11.8 Plt Count (130-400) 10^3/uL 378 MPV (8.0-11.0) fL 9.8 Immature Gran % % 0.1 Neutrophils % % 56.6 Lymphocytes % % 27.3 Monocytes % % 7.3 Eosinophils % % 7.6 Basophils % % 1.1 Nucleated RBC % (0.0-0.3) % 0.0 Absolute Neutrophils (1.2-6.7) 10^3/uL 5.31 Absolute Lymphocytes (1.2-3.4) 10^3/uL 2.56 Absolute Monocytes (0.1-0.8) 10^3/uL 0.68 Absolute Eosinophils (0.0-0.7) 10^3/uL 0.71 H Absolute Basophils (0.0-0.2) 10^3/uL 0.10 VBG pH (7.31-7.41) 7.36 VBG pCO2 (41-51) mmHg 52 H VBG pO2 mmHg 39 VBG HCO3 (23-28) mmol/L 30 H VBG Total CO2 (24-29) mmol/L 26 VBG O2 Saturation % 70 VBG Base Excess (-2-3) mmol/L 4 H Sodium (136-145) mmol/L 141 Potassium (3.5-5.1) mmol/L 3.6 Chloride (98-107) mmol/L 103 Carbon Dioxide (21.0-32.0) mmol/L 30.9 Anion Gap (3-11) mmol/L 7.1 BUN (7-18) mg/dL 15 Creatinine (0.70-1.30) mg/dL 1.0 Est GFR (CKD-EPI 2020) (mL/min/1.73m2) 107.78 Glucose (74-106) mg/dL 102 Calcium (8.5-10.1) mg/dL 9.2 Total Bilirubin (0.2-1.0) mg/dL 1.15 H AST (15-37) U/L 13 L ALT (16-63) U/L 15 L Alkaline Phosphatase (46-116) U/L 66 Total Protein (6.4-8.2) g/dL 8.3 H Albumin (3.4-5.0) g/dL 4.4 Quality:SDOH Health Related Social Needs: No Data to Display PFSH All Active Problems (Updated 11/14/23 @ 00:04 by Zoie Roblero MD) Vapes nicotine containing substance (Acute) Spontaneous pneumothorax (Acute) Social History Smoking/Tobacco Use Status: Former Tobacco Use Quit Date: 10/26/23 Tobacco: How many years used: 6 Smoking risk assessment performed?: Yes Alcohol Intake: never Housing: house
--- NOTE | 2023-11-13 22:27 | DI.RAD_ITS ---
Exam(s) XR CHEST 2V PA LATERAL EXAM: XR CHEST 2V PA LATERAL CLINICAL HISTORY: SOB, back pain, recent spont pneumo TECHNIQUE: 2D digital imaging was performed of the chest. Two images were obtained. PA and lateral views were obtained. COMPARISON: CR XR CHEST 2V PA LATERAL from 11/10/2023 FINDINGS: MEDIASTINUM: Normal. There is no midline shift of the mediastinum. HEART: Normal. PULMONARY VASCULATURE: Normal. LUNGS: Clear. PLEURAL SPACE: Interval recurrence of the left pneumothorax. The apex of the lung is seen just infer ior to the left 4th rib. There is blunting of the left costophrenic angle and a small effusion shoul d be considered. No right pneumothorax or pleural effusion is seen. BONE:Within normal limits for the patient's age. OTHER FINDINGS:Normal. IMPRESSION: Recurrent left pneumothorax. The apex of the lung is now seen just below the left 4th rib. Question of a tiny left pleural effusion. DATA REPOSITORY: RADIATION DOSE DELIVERED:
[2023-11-13 22:42] LABS: BE (Venous) 4 mmol/L (-2-3); HCO3 (Venous) 30 mmol/L (23-28); O2 Sat (Venous) 70 %; TCO2 (Venous) 26 mmol/L (24-29); pCO2 (Venous) 52 mmHg (41-51); pH (Venous) 7.36 (7.31-7.41); pO2 (Venous) 39 mmHg
[2023-11-13 22:43] LABS: Abs Immature Grans 0.01 10^3/uL (0.0-0.06); Absolute Eosinophil Count 0.71 10^3/uL (0.0-0.7); Absolute Lymphocyte Count 2.56 10^3/uL (1.2-3.4); Absolute Monocyte Count 0.68 10^3/uL (0.1-0.8); Absolute Neutrophil Count 5.31 10^3/uL (1.2-6.7); Basophils % 1.1 %; Eosinophils % 7.6 %; HCT 45.3 % (40.0-50.0); HGB 15.9 g/dL (13.5-17.5); Immature Grans % 0.1 %; Lymphocytes % 27.3 %; MCH 30.2 pg (27.0-33.0); MCHC 35.1 % (32.0-36.0); MCV 86 fL (80-95); MPV 9.8 fL (8.0-11.0); Monocytes % 7.3 %; Neutrophils % 56.6 %; Platelet Count 378 10^3/uL (130-400); RBC 5.27 10^6/uL (4.36-5.78); RDW 11.8 % (11.8-14.1); RDW-SD 36.9 fL; WBC 9.37 10^3/uL (4.4-10.8)
--- NOTE | 2023-11-13 22:45 | DI.VRAD_ITS ---
Addendum created by Reynaldo Arguello MD on 11/13/2023 10:47:28 PM EDT: ADDENDUM: Critical findings within the report were discussed with GIANLUCA LUNA at 11/13/2023 10:47 PM EDT . Initial report created on 11/13/2023 10:44:29 PM EDT: PROCEDURE INFORMATION: Exam: XR Chest Exam date and time: 11/13/2023 10:22 PM Age: 23 years old Clinical indication: Shortness of breath; Patient HX: Recent spont pneumo of left lung 11/08/23. SOB, back pain TECHNIQUE: Imaging protocol: Radiologic exam of the chest. Views: 2 views. COMPARISON: CR XR CHEST 2V PA LATERAL 11/10/2023 2:26 PM FINDINGS: Lungs: No infiltrates. No mass lesion or nodule seen. Pleural spaces: There is interval recurrence of left-sided pneumothorax measuring 4.2 cm in apical pleural space, 1.9 cm in upper lateral pleural space, 8 mm in mid lateral pleural space. Heart/Mediastinum: Unremarkable. No cardiomegaly. Bones/joints: Unremarkable. IMPRESSION: Interval recurrence of left apical pneumothorax as described above. Estimated pneumothorax volume percentage is 27.70%. This suggests a large pneumothorax. It will take approximately 13 days for the pneumothorax to resolve at the rate of 2.2% per day. Dictated and Authenticated by: Reynaldo Arguello MD. Ordering:GILES Lino MD
--- NOTE | 2023-11-13 22:57 | SCONE_ITS ---
Date of service: 11/13/23 Time of Service: 22:59 Assessment and Plan Assessment and plan (1) Spontaneous pneumothorax: Status: Acute Assessment and plan: Recurrent spontaneous LEFT PTX. Reportedly stable. Presumably in setting of vaping. I recommend chest tube placement, CT chest and likely VATS blebectomy wedge resection sometime next week since this is recurrent disease. If patient is refusing chest tube, he can be managed by the medical service. If he is admitted and decompensates on the floor - a LEFT sided needle decompression needs to be performed in 4-5th intercostal space along mid- axillary line. While unlikely, this is possible and immediate action would be necessary to save his life. History of Present Illness Narrative: Called by ED provider because patient with history of spont PTX has another one. Reportedly refusing to have a chest tube placed. Otherwise HD stable. No tension physiology. No distress. PFSH All Active Problems (Updated 11/11/23 @ 00:08 by LORE WEINER) Vapes nicotine containing substance (Acute) Spontaneous pneumothorax (Acute) Social History Smoking risk assessment performed?: No Alcohol Intake: never Housing: house Exam Narrative Exam Narrative: Reportedly stable and without distress Results Last Vital Signs Temp 98.4 F 11/13/23 22:04 Pulse 66 11/13/23 22:04 Resp 18 11/13/23 22:04 BP 138/96 H 11/13/23 22:04 Pulse Ox 100 11/13/23 22:04 Labs 11/13/23 22:37 11/13/23 22:37 Labs: Laboratory Results - last 24 hr 11/13/23 22:37 WBC 9.37 RBC 5.27 Hgb 15.9 Hct 45.3 MCV 86 MCH 30.2 MCHC 35.1 RDW 11.8 Plt Count 378 MPV 9.8 Immature Gran % 0.1 Neutrophils % 56.6 Lymphocytes % 27.3 Monocytes % 7.3 Eosinophils % 7.6 Basophils % 1.1 Nucleated RBC % 0.0 Absolute Neutrophils 5.31 Absolute Lymphocytes 2.56 Absolute Monocytes 0.68 Absolute Eosinophils 0.71 H Absolute Basophils 0.10 VBG pH 7.36 VBG pCO2 52 H VBG pO2 39 VBG HCO3 30 H VBG Total CO2 26 VBG O2 Saturation 70 VBG Base Excess 4 H
[2023-11-13 23:01] LABS: ALT 15 U/L (16-63); AST 13 U/L (15-37); Albumin 4.4 g/dL (3.4-5.0); Alkaline Phosphatase 66 U/L (46-116); Anion Gap 7.1 mmol/L (3-11); BUN 15 mg/dL (7-18); Bilirubin, Total 1.15 mg/dL (0.2-1.0); CO2 30.9 mmol/L (21.0-32.0); Calcium 9.2 mg/dL (8.5-10.1); Chloride 103 mmol/L (98-107); Estimated GFR 107.78 (mL/min/1.73m2); Glucose 102 mg/dL (74-106); Potassium 3.6 mmol/L (3.5-5.1); Sodium 141 mmol/L (136-145); Total Protein 8.3 g/dL (6.4-8.2)
--- NOTE | 2023-11-13 23:30 | DI.RAD_ITS ---
Exam(s) XR PORTABLE CHEST AP EXAM: XR PORTABLE CHEST AP CLINICAL HISTORY: post line TECHNIQUE: 2D digital imaging was performed of the chest. One image was obtained. An AP view was ob tained. COMPARISON: CR,XR XR CHEST 2V PA LATERAL from 11/13/2023 FINDINGS: MEDIASTINUM: Normal. HEART: Normal. PULMONARY VASCULATURE: Normal. LUNGS: Mild atelectatic changes are seen in the left lung base. The right lung is clear and well exp anded. PLEURAL SPACE: There has been interval placement of a left chest tube. The pigtail is seen in the le ft lung apex. No demonstrable pneumothorax is seen. No effusion. No right pneumothorax. BONE:Within normal limits for the patient's age. OTHER FINDINGS:Normal. IMPRESSION: Interval placement of a left chest tube. No demonstrable pneumothorax is seen at this time. DATA REPOSITORY: RADIATION DOSE DELIVERED:
--- NOTE | 2023-11-13 23:35 | PROC.BLANK_ITS ---
Date of service: 11/13/23 Time of Service: 23:36 Procedures Procedural Sedation Indication: other (chest tube) ASA Class: I Preparation: credit collection specialist applied, pulse oximeter, capnometry used, supplemental O2 applied, suction/airway equipment at bedside and IV secured Ketamine: IV Ketamine dose (mg): 100 Patient Tolerated Procedure: well Complications: none Medical Decision Making Quality:SDOH Health Related Social Needs: No Data to Display
[2023-11-13] MEDS: Ketamine 500 MG/10 ML VIAL 100 MG IVP (23:44)
[2023-11-13] MEDS: Ketorolac 15 MG/ML VIAL IVP (23:45)
[2023-11-14] VITALS (38 sets, daily range): BP systolic 104–162; BP diastolic 64–120; PULSE 54–110; RESP 12–27; TEMP 35.6–37.2; O2SAT 93–99; BMI 17.9
--- NOTE | 2023-11-14 | DI.RAD_ITS ---
Exam(s) XR PORTABLE CHEST AP EXAM: XR PORTABLE CHEST AP CLINICAL HISTORY: portable upright - assess L PTX TECHNIQUE: 2D digital imaging was performed of the chest. One image was obtained. An AP view was ob tained. COMPARISON: CR,XR XR PORTABLE CHEST AP from 11/13/2023 FINDINGS: MEDIASTINUM: Normal. HEART: Normal. PULMONARY VASCULATURE: Normal. LUNGS: Clear. PLEURAL SPACE: There is again seen a left chest tube with the pigtail in the left lung apex. No demo nstrable pneumothorax is seen. There is blunting of the left costophrenic angle suggesting a tiny le ft pleural effusion. No right pleural effusion or pneumothorax is identified. BONE:Within normal limits for the patient's age. OTHER FINDINGS:Normal. IMPRESSION: 1. No demonstrable pneumothorax. 2. Left chest tube is again seen in the left lung apex. 3. Tiny left pleural effusion. DATA REPOSITORY: RADIATION DOSE DELIVERED:
[2023-11-14] MEDS: Acetaminophen 500 MG TAB 1000 MG PO ×4 (00:01→18:30)
--- NOTE | 2023-11-14 00:13 | DI.VRAD_ITS ---
PROCEDURE INFORMATION: Exam: XR Chest Exam date and time: 11/13/2023 11:54 PM Age: 23 years old Clinical indication: Device placement; Other: Post line TECHNIQUE: Imaging protocol: Radiologic exam of the chest. Views: 1 view. COMPARISON: XR CHEST 2V PA LATERAL 11/13/2023 10:22 PM FINDINGS: Tubes, catheters and devices: Left-sided chest tube in place with tip overlying left apical pleural space. No discernible pneumothorax is seen. Lungs: No infiltrates. No mass lesion or nodule seen. Pleural spaces: See Tubes, catheters and devices finding. Heart/Mediastinum: Unremarkable. No cardiomegaly. Bones/joints: Unremarkable. IMPRESSION: Left-sided chest tube in place with tip overlying left apical pleural space. No discernible pneumothorax is seen. Dictated and Authenticated by: Reynaldo Arguello MD. Ordering:GILES Lino MD
[2023-11-14] MEDS: fentaNYL 100 MCG/2 ML VIAL (00:30)
[2023-11-14] MEDS: Ondansetron 4 MG/2 ML VIAL (00:30)
[2023-11-14] MEDS: fentaNYL 100 MCG/2 ML VIAL 50 MCG IVP (00:55)
[2023-11-14] MEDS: MORPHine 2 MG/ML SYR IVP ×6 (01:51→22:38)
[2023-11-14] MEDS: Lactated Ringers 1,000 ML 30 ML IV (01:52)
[2023-11-14] MEDS: Normal Saline Flush 10 ML SYR IVP ×7 (01:52→22:40)
--- NOTE | 2023-11-14 02:33 | RESPIRATORY ---
RT Initial Evalutation/Assessment Start: 11/14/23 00:38 Freq: .q shift and prn Status: Active Protocol: Document 11/14/23 02:04 RT.GLEN (Rec: 11/14/23 02:11 RT.GLEN [id number]) RT Assessment Pulmonary History Pulmonary History Other Smoking History Smoking/Tobacco Use Status Former Tobacco Use Tobacco: How many years used 6 Quit Date 10/26/23 Tobacco Type e-cigarettes Years smoked 6 OXYGEN HISTORY: CPAP Can use home machine No BIPAP Can you home machine No Trilogy/AVAPS Can use home machine No Current Respiratory Symptoms Current Respiratory Symptoms Chest Pain Activity Activity Level Very active. Respiratory Breath Sounds Breath Sounds Any abnormal sounds, decreased breath sounds Response No change Pulse Rate <100 Respiratory Rate <18 Shortness of Breath None Respiratory Therapy Score Total 1 Assessment and Plan RT Treatment Protocol Lung Expansion Therapy Protocol,No RT treatment protocols required at this time, re-consult if change Note No RT treatment protocol required at this time. Only Incentive Spirometry recommended due to stable pneumothorax and prior to surgery.
[2023-11-14] MEDS: Heparin 5,000 UNITS/ML VIAL 5000 UNITS SC ×3 (05:50→22:31)
--- NOTE | 2023-11-14 09:12 | W.PM.PROGNOT ---
Date of Service Date of service: 11/14/23 Time of Service: 09:13 Assessment and Plan Assessment and plan (1) Spontaneous pneumothorax: Status: Acute Assessment and plan: 23-year-old man with a left?sided spontaneous pneumothorax that is recurrent. This is in the setting of vaping that is almost certainly contributing to bleb disease. Because this is his second recurrence I recommend cross-sectional imaging of the chest and that he undergo left VATS apical wedge resection/blebectomy with mechanical pleurodesis to avoid recurrent disease. We also had an extensive discussion about vaping and the short?term effects and dangers of vaping. I counseled him that this condition can be life-threatening and that he should stop all methods of inhaled smoke. Overall plan: Regular diet DVT prophylaxis Chest tube to suction CT scan of the chest VATS blebectomy/mechanical pleurodesis on Thursday. Subjective Subjective Interval history since last seen: Patient has no complaints at the bedside. The chest discomfort is gone. He does report that he has been vaping historically. This is the second time this has happened. Same side. Exam Narrative Exam Narrative: General: Nontoxic, comfortable and interactive. Healthy and appropriately nourished. Neuro: Alert and oriented x 3 Psych: Good mood and affect, good insight and understanding into his conditions Chest: Nonlabored breathing. Breath sounds are present bilateral. There is no crepitus on the chest wall. The pleural catheter is to the Pleur-evac and there is no obvious air leak at this time. The Pleur-evac is -20 suction. 15-20 cc of serous output only. Chest x-ray from this morning shows no recurrent or residual pneumothorax. Objective Last Vital Signs Temp 98.2 F 11/14/23 08:02 Pulse 54 L 11/14/23 08:02 Resp 15 11/14/23 08:02 BP 104/72 11/14/23 08:02 Pulse Ox 98 11/14/23 08:02 Laboratory Results - last 24 hr 11/13/23 22:37 WBC 9.37 RBC 5.27 Hgb 15.9 Hct 45.3 MCV 86 MCH 30.2 MCHC 35.1 RDW 11.8 Plt Count 378 MPV 9.8 Immature Gran % 0.1 Neutrophils % 56.6 Lymphocytes % 27.3 Monocytes % 7.3 Eosinophils % 7.6 Basophils % 1.1 Nucleated RBC % 0.0 Absolute Neutrophils 5.31 Absolute Lymphocytes 2.56 Absolute Monocytes 0.68 Absolute Eosinophils 0.71 H Absolute Basophils 0.10 VBG pH 7.36 VBG pCO2 52 H VBG pO2 39 VBG HCO3 30 H VBG Total CO2 26 VBG O2 Saturation 70 VBG Base Excess 4 H Sodium 141 Potassium 3.6 Chloride 103 Carbon Dioxide 30.9 Anion Gap 7.1 BUN 15 Creatinine 1.0 Est GFR (CKD-EPI 2020) 107.78 Glucose 102 Calcium 9.2 Total Bilirubin 1.15 H AST 13 L ALT 15 L Alkaline Phosphatase 66 Total Protein 8.3 H Albumin 4.4 Time Spent with Patient Time Spent with Patient: 35-49 minutes Time was spent: preparing to see the patient(eg.review tests), obtaining and/or reviewing separately otained hiistory, ordering medications,tests, procedures, indepentently interpreting results, counseling the patient and care coordination
--- NOTE | 2023-11-14 09:49 | DI.VRAD_ITS ---
PROCEDURE INFORMATION: Exam: XR Chest Exam date and time: 11/14/2023 9:37 AM Age: 23 years old Clinical indication: Condition or disease; Other: Portable upright - assess L ptx TECHNIQUE: Imaging protocol: Radiologic exam of the chest. Views: 1 view. COMPARISON: CR XR PORTABLE CHEST AP 11/13/2023 11:54 PM FINDINGS: Tubes, catheters and devices: Pigtail catheter is stable terminating in the left apex.. Lungs: Unremarkable. No consolidation. Pleural spaces: No pneumothorax is identified. . Heart/Mediastinum: Unremarkable. No cardiomegaly. Bones/joints: Unremarkable. IMPRESSION: 1. Pigtail catheter is stable terminating in the left apex.. 2. No pneumothorax is identified. . Dictated and Authenticated by: Álvaro Villarreal MD. Ordering:MACY Ashley MD
--- NOTE | 2023-11-14 12:16 | DI.CT_ITS ---
Exam(s) CT CHEST HIGH RESOLUTION EXAM: CT CHEST HIGH RESOLUTION CLINICAL HISTORY: Left spont PTX, look for apical bleb disease. TECHNIQUE: Imaging protocol: Axial computed tomography images were obtained and coronal and sagittal reformatted images were created and reviewed. COMPARISON: No exams were available for comparison FINDINGS: Tracheobronchial tree: Patent where visualized. Pulmonary parenchyma: There is mild dependent atelectasis in the left lower lobe. The lungs are othe rwise clear. No architectural distortion. Mediastinum and Viri: No dominant adenopathy or fluid collection. The esophagus is unremarkable. Thyroid gland: Unremarkable. Pleura: There is a very tiny residual left apical pneumothorax. There is a tiny left pleural effusio n. No right pleural effusion or right pneumothorax is present. Heart: The heart is not dilated. No coronary artery calcifications are seen. No pericardial effusion. Aorta: Thoracic aorta non-dilated. Upper abdomen: Unremarkable. Lymph nodes: Within normal limits. Tubes, Catheters, and Lines: There is a left chest tube in place. The pigtail portion of the chest t ube is seen in the anterior apical region of the left hemithorax. Soft tissues: There is a small amount of subcutaneous air at the entry site of the chest tube in the left lateral chest wall. Bones:Within normal limits for the patient's age. There is a sclerotic focus in the thoracic spine l ikely reflecting a bone island in some without a history of neoplasm. If clinically indicated (histo ry of neoplasm), bone scan may be obtained for further evaluation.. IMPRESSION: 1. There is a persistent tiny left pneumothorax. 2. There is a left chest tube in place. The pigtail portion of the chest tube is seen in the anterio r apical region of the left hemithorax. 3. There is a question of a solitary bleb seen in the left lung apex. The right lung is unremarkable . 4. Mild left basilar atelectasis and a small left pleural effusion. RADIATION DOSE DELIVERED: 514.28mGy.cm Total DLP 514.28mGy.cm Total DLP DATA REPOSITORY: All CT scans at this facility are submitted to the National Radiology Data Registry (NRDR) Dose Index Registry (DIR) with the [employer] ([employer]). RADIATION OPTIMIZATION: All CT scans at this facility use at least one of these dose optimization te chniques: automated exposure control; mA and/or kV adjustment per patient size (includes targeted exa ms where dose is matched to clinical indication); or iterative reconstruction.
--- NOTE | 2023-11-14 12:34 | DI.VRAD_ITS ---
PROCEDURE INFORMATION: Exam: CT Chest Without Contrast; Diagnostic; High Resolution Exam date and time: 11/14/2023 12:02 PM Age: 23 years old Clinical indication: Other: Left spont ptx, look for apical bleb disease; Prior surgery; Surgery date: Post-operative (0-2 days); Surgery type: Chest tube TECHNIQUE: Imaging protocol: Diagnostic computed tomography of the chest without contrast. Exam was performed with high resolution protocol. 3D rendering (Not supervised by radiologist): MIP and/or 3D reconstructed images were created by the technologist. Radiation optimization: All CT scans at this facility use at least one of these dose optimization techniques: automated exposure control; mA and/or kV adjustment per patient size (includes targeted exams where dose is matched to clinical indication); or iterative reconstruction. COMPARISON: CT CHEST W 11/10/2023 6:40 AM FINDINGS: Tubes, catheters and devices: Pigtail catheter terminates in the left apex. Very small pneumothorax in this region (series 3, image 10; series 4, image 19) . The pneumothorax measures 13.8 x 4.8 x 5.1 mm. Lungs: No consolidation. No masses. No bronchiectasis. No honeycombing. Pleural space: Small left pleural effusion. . Additional 18x4 mm pneumothorax in the medial aspect of the left lower lobe series 3, image 35. Heart: Unremarkable. No cardiomegaly. No pericardial effusion. Vasculature: Unremarkable. No aortic aneurysm. Lymph nodes: Unremarkable. No enlarged lymph nodes. Bones/joints: 1.7 cm sclerotic density noted in the T3, compatible with bone island (enostosis) in patient without history of neoplastic disease. Nuclear medicine bone scan may be useful for further evaluation if clinically indicated. Soft tissues: Subcutaneous emphysema in the soft tissues laterally. IMPRESSION: 1. Pigtail catheter terminates in the left apex. Very small pneumothorax in this region (series 3, image 10; series 4, image 19) . The pneumothorax measures 13.8 x 4.8 x 5.1 mm. 2. Small left pleural effusion. . 3. Additional 18x4 mm pneumothorax in the medial aspect of the left lower lobe series 3, image 35. Dictated and Authenticated by: Álvaro Villarreal MD. Ordering:MACY Ashley MD
--- NOTE | 2023-11-14 13:05 | ANES.PREOP_ITS ---
General Info Date of Service Date Performed: 11/14/23 Height: 5 ft 8 in Weight: 53.524 kg Body Mass Index (BMI): 17.9 Surgical Procedure: left VATS apical wedge resection/blebectomy with mechanical pleurodesis on November 15. Meds Allergies and Home Medications Allergies Allergy/AdvReac Type Severity Reaction Status Date / Time No Known Allergies Allergy Unverified 11/13/23 22:27 Home Medication Medication Instructions Recorded Unknown [No Known Home Meds] 11/08/23 Current Visit Medications: Current Medications Generic Name Dose Route Start Last Admin Trade Name Freq PRN Reason Stop Dose Admin Acetaminophen 1,000 mg 11/14/23 06:00 11/14/23 12:33 Acetaminophen 500 Mg Tab PO 1,000 mg Q6H JOSSY Administration Heparin Sodium (Porcine) 5,000 units 11/14/23 06:00 11/14/23 05:50 Heparin 5,000 Units/Ml Vial SC 5,000 units Q8H JOSSY Administration Ringer's Solution 1,000 mls @ 30 mls/hr 11/14/23 00:45 11/14/23 01:52 IV 30 mls/hr INFUSION JOSSY Administration IV Miscellaneous Supplies 1 each 11/14/23 00:45 Iv Access IV DIRECTED JOSSY Morphine Sulfate 2 mg 11/14/23 00:34 11/14/23 08:58 Morphine 2 Mg/Ml Syr IVP 2 mg Q1H PRN PRN Administration Ondansetron HCl 4 mg 11/14/23 00:34 Ondansetron 4 Mg/2 Ml Vial IVP Q4H PRN PRN Sodium Chloride 0 ml 11/14/23 00:34 11/14/23 01:52 Normal Saline Flush 10 Ml Syr IVP 20 ml PRN PRN Administration Sodium Chloride 0 ml 11/14/23 08:30 11/14/23 08:58 Normal Saline Flush 10 Ml Syr IVP 10 ml BID JOSSY Administration Sodium Chloride 0 ml 11/14/23 00:34 Normal Saline 10 Ml Vial IJ DIRECTED PRN PFSH Active Problems Active Problems: Problem Status Onset Code Vapes nicotine containing substance Z72.0 Spontaneous pneumothorax J93.83 Tobacco Smoking/Tobacco Use Status: Former Tobacco Use Alcohol Alcohol Intake: never Vital Signs and Lab Results Vital Signs Most Recent Vital Signs in EMR: Most Recent Vital Signs Temp Pulse Resp BP Pulse Ox 36.8 C 54 L 15 104/72 96 11/14/23 08:02 11/14/23 08:02 11/14/23 08:02 11/14/23 08:02 11/14/23 10:29 Lab Results 11/13/23 22:37 11/13/23 22:37 Blood Type / Crossmatch: 2 No Data to Display Complete Blood Count: 2 White Blood Count 9.37 10^3/uL (4.4-10.8) 11/13/23 22:37 Red Blood Count 5.27 10^6/uL (4.36-5.78) 11/13/23 22:37 Hemoglobin 15.9 g/dL (13.5-17.5) 11/13/23 22:37 Hematocrit 45.3 % (40.0-50.0) 11/13/23 22:37 Platelet Count 378 10^3/uL (130-400) 11/13/23 22:37 Complete Metabolic Panel: 2 Sodium 141 mmol/L (136-145) 11/13/23 22:37 Potassium 3.6 mmol/L (3.5-5.1) 11/13/23 22:37 Chloride 103 mmol/L (98-107) 11/13/23 22:37 Carbon Dioxide 30.9 mmol/L (21.0-32.0) 11/13/23 22:37 BUN 15 mg/dL (7-18) 11/13/23 22:37 Creatinine 1.0 mg/dL (0.70-1.30) 11/13/23 22:37 Est GFR (CKD-EPI 2020) 107.78 (mL/min/1.73m2) 11/13/23 22:37 Calcium 9.2 mg/dL (8.5-10.1) 11/13/23 22:37 Albumin 4.4 g/dL (3.4-5.0) 11/13/23 22:37 Glucose 102 mg/dL (74-106) 11/13/23 22:37 Liver Function Panel: 2 Alanine Aminotransferase (ALT/SGPT) 15 U/L (16-63) L 11/13/23 2 2:37 Aspartate Amino Transf (AST/SGOT) 13 U/L (15-37) L 11/13/23 22: 37 Coagulation Panel: 2 No Data to Display Cardiac Panel: 2 No Data to Display Arterial Blood Gas: 2 No Data to Display Venous Blood Gas: 2 Venous Blood pH 7.36 (7.31-7.41) 11/13/23 22:37 Venous Blood Partial Pressure O2 39 mmHg 11/13/23 22:37 Venous Blood Partial Pressure CO2 52 mmHg (41-51) H 11/13/23 22 :37 Venous Blood Oxygen Saturation 70 % 11/13/23 22:37 Venous Blood HCO3 30 mmol/L (23-28) H 11/13/23 22:37 Venous Blood Base Excess 4 mmol/L (-2-3) H 11/13/23 22:37 Venous Blood Total Carbon Dioxide 26 mmol/L (24-29) 11/13/23 22 :37 Pancreas Panel: 2 No Data to Display Thyroid Panel: 2 No Data to Display Infectious Disease: 2 No Data to Display Blood Cultures: 2 No Data to Display Toxicology Panel: 2 No Data to Display Anesthesia Assessment and Plan Anesthesia History Personal History: No History of Anesthesia Complications (Inguinal Hernia repair as a child at [facility] [place], [place]. No anesthesia issues.) Family History: No Family History of Anesthesia Complications Exercise Tolerance Exercise Tolerance: Metabolic Equivalents>4 Pertinent Negatives Pertinent Negatives: No Symptoms of GERD Cardiac & Pulmonary Exam Cardiac Exam: Normal S1/S2 Heart Sounds Pulmonary Exam: Clear Bilateral Breath Sounds (upper left decreased with CT in place & on suction with water seal) Implantable Cardiac Device Does patient have a Pacemaker or an ICD?: No Airway Exam Known Difficult Airway: No Mallampati Class: 1 Mouth Opening: Narrow (< 3cm) Thyromental Distance: Greater than 3 cm Neck Range of Motion: Full ROM Neck Circumference: Normal Teeth Condition: Normal Dentition ASA Classification ASA Score: ASA 2 Emergency Case?: No NPO Status NPO Status: NPO Clears >2 hours, Solids >8 hours Anesthesia Plan Resuscitation Status: Full Code Anesthesia Technique: General Anesthesia Airway Planned: Double Lumen Endotracheal Tube Monitors Used: Standard Monitors and SedLine Preoperative Comments:: Generally healthy 23 yo male with spontaneous left pneumothorax. Hx of vaping nicotine. Denies THC or ETOH. Small stature with height at 68 and weight only 53kilo's. 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 Alma Monroe CRNA
--- NOTE | 2023-11-14 15:16 | PDOC.CMIN ---
Date of service: 11/14/23 Time of Service: 15:16 Care Management Initial Assmt Initial Assessment Reason for Hospitalization: spontaneous pneumothorax Functional Status/Living Situation Patient Presentation: Man was lying in bed dozing when CM met with him. He woke up easily when his name was called and engaged easily with CM. Man is here with a pneumothorax. He shared that he just had a similar episode about a week ago and was hospitalized at [facility] for a couple of days. He is scheduled to have a VATS blebectomy/mechanical pleurodesis on Thursday. He indicated that he is really hoping to be able to return home soon thereafter. Town of Residence: [facility] Resides with: Spouse ( Halina) Significant Other/Family: Out of area (most of family lives in [place], [place] about an hour away.) Employment Status: Employed ([employer] in [facility]) Instrumental Activities of Daily Living (ADLs): Independent Medications Medication Management: No Issues/Barriers identified Advance Directives Advance Directives: Do you have an Advance Directive: N 11/08/23 12:38 AD On File at [facility]: N 11/08/23 12:38 Date Asked 11/13/23 11/13/23 22:09 AD Date Reviewed COLST On File at [facility] No 11/13/23 22:09 COLST Date Scanned Code Status Resuscitation Status Full Code Portal Pt does not currently have a portal and education provided: No Insurance Coverage/Financial Issues Insurance: BC/BS ACO Member: No Care Team Visit Care Team Role Provider Type Unknown Unknown Primary Care Provider STAFF PHYSICIAN Zoie Roblero MD Emergency Provider [facility] STAFF PHYSICIAN Dion Coronel MD Admit Provider [facility] STAFF PHYSICIAN Attending Provider Discharge Potential Discharge Needs: Surgical F/U Appt Anticipated Barriers to Discharge: Medical Status Patient/Family Education Needs: Review discharge instructions, discuss Ask Me Three Transportation: Private vehicle Plan: Anticipate Man will be discharged home with no new services when medically cleared. He will follow up with his community providers, surgeon and plan of care and transport with his . CM will follow and support discharge needs. PFSH All Active Problems (Updated 11/14/23 @ 00:04 by Zoie Roblero MD) Vapes nicotine containing substance (Acute) Spontaneous pneumothorax (Acute) Social History Smoking/Tobacco Use Status: Former Tobacco Use Quit Date: 10/26/23 Tobacco: How many years used: 6 Smoking risk assessment performed?: Yes Alcohol Intake: never Housing: house SDOH(Care Management) Screening Will the Patient Participate in the Screening?: Unable to obtain
[2023-11-15] MEDS: Acetaminophen 500 MG TAB 1000 MG PO ×5 (00:37→23:56)
[2023-11-15 03:05] VITALS: RESP 18; O2SAT 97
[2023-11-15 03:13] VITALS: BP 103/68; PULSE 51; RESP 16; TEMP 36.8; O2SAT 97
[2023-11-15] MEDS: MORPHine 2 MG/ML SYR IVP ×3 (03:17→20:17)
[2023-11-15] MEDS: Normal Saline Flush 10 ML SYR IVP ×4 (03:27→20:16)
[2023-11-15] MEDS: Heparin 5,000 UNITS/ML VIAL 5000 UNITS SC ×3 (06:10→22:25)
[2023-11-15 07:53] VITALS: BP 111/76; PULSE 57; RESP 15; TEMP 36.7; O2SAT 96
--- NOTE | 2023-11-15 08:26 | DI.RAD_ITS ---
Exam(s) XR PORTABLE CHEST AP EXAM: XR PORTABLE CHEST AP CLINICAL HISTORY: L spont PTX TECHNIQUE: 2D digital imaging was performed of the chest. One image was obtained. An AP view was ob tained. COMPARISON: CR,XR XR PORTABLE CHEST AP from 11/14/2023 FINDINGS: MEDIASTINUM: Normal. HEART: Normal. PULMONARY VASCULATURE: Normal. LUNGS: Clear. PLEURAL SPACE: No pleural effusion or pneumothorax. No demonstrable pneumothorax is seen on the left. BONE:Within normal limits for the patient's age. OTHER FINDINGS:There is again seen a left chest tube in the apex of the left hemithorax. IMPRESSION: Stable position of the left chest tube. No demonstrable pneumothorax is present. DATA REPOSITORY: RADIATION DOSE DELIVERED:
--- NOTE | 2023-11-15 09:40 | DI.VRAD_ITS ---
PROCEDURE INFORMATION: Exam: XR Chest Exam date and time: 11/15/2023 8:22 AM Age: 23 years old Clinical indication: Other: L spont ptx TECHNIQUE: Imaging protocol: Radiologic exam of the chest. Views: 1 view. COMPARISON: CT CHEST HIGH RESOLUTION 11/14/2023 12:02 PM FINDINGS: Tubes, catheters and devices: Left chest tube terminates at the thoracic apex. Lungs: No focal consolidation seen. Pleural spaces: No pneumothorax appreciated. Heart/Mediastinum: No cardiomegaly. Bones/joints: Grossly unremarkable. IMPRESSION: Left chest tube as above. Dictated and Authenticated by: Karla Will MD. Ordering:MACY Ashley MD
--- NOTE | 2023-11-15 10:12 | W.PM.PROGNOT ---
Date of Service Date of service: 11/15/23 Time of Service: 10:13 Assessment and Plan Assessment and plan (1) Spontaneous pneumothorax: Status: Acute Assessment and plan: 23-year-old man with recurrent, spontaneous left pneumothorax in the setting of vaping. Hemodynamically stable. No obvious air leak but in the setting of recurrent disease I recommend VATS apical wedge/blebectomy and mechanical pleurodesis. The patient is in agreement with the indications, likely benefits and potential risks associated with having surgical intervention. He wants to proceed. I notified anesthesia about the case yesterday. Their preop consultation is noted/appreciated. Overall plan: N.p.o. midnight Peripheral IV access left upper extremity x 2 Type and screen, verify coagulation parameters are normal Left VATS tomorrow Subjective Subjective Interval history since last seen: No events overnight. No clinical changes. We talked about the upcoming surgery tomorrow. We talked about expected time off from work. He has no other questions about it. Exam Narrative Exam Narrative: General: Nontoxic, comfortable and interactive Neuro: Alert and oriented x 3 Psych: Good mood and affect, good insight and understanding into his condition. Chest: No crepitus. Nonlabored breathing. Chest tube intact. -20 suction. No leak. About 10 cc of serous fluid out overnight. Objective Last Vital Signs Temp 98.1 F 11/15/23 07:53 Pulse 57 L 11/15/23 07:53 Resp 15 11/15/23 07:53 BP 111/76 11/15/23 07:53 Pulse Ox 96 11/15/23 07:53 Time Spent with Patient Time Spent with Patient: 25-34 minutes Time was spent: preparing to see the patient(eg.review tests), obtaining and/or reviewing separately otained hiistory, ordering medications,tests, procedures, indepentently interpreting results, counseling the patient and care coordination
[2023-11-15 11:22] LABS: Platelet Count 302 10^3/uL (130-400)
--- NOTE | 2023-11-15 14:27 | NUR.NOTE ---
Nursing Note: Patient having moderate chest tube insertion site pain, received scheduled APAP, states PRN morphine makes him sleepy, nurse paged consumer loan specialist provider, no new pain medication changes at this time.
--- NOTE | 2023-11-15 14:34 | NUR.NOTE ---
Nursing Note: Patient sleeping soundly, no pain medication given at this time. Family and friends at bedside will call if patient wakes and requires pain medication
[2023-11-15 15:42] VITALS: BP 117/68; PULSE 69; RESP 17; TEMP 37.1; O2SAT 94
[2023-11-15] MEDS: Lactated Ringers 1,000 ML 30 ML IV (19:52)
[2023-11-16] VITALS (48 sets, daily range): BP systolic 96–126; BP diastolic 59–87; PULSE 58–88; RESP 13–28; TEMP 36.4–37.6; O2SAT 95–100
--- NOTE | 2023-11-16 03:34 | NUR.NOTE ---
Nursing Note: 0030 11/16/23 patient complained of being unable to sleep due to anxiety. Doctor contacted to request assistance with sleep. This nurse was told not to contact the doctor for this and that the patient would not be receiving anything to assist with sleep.
[2023-11-16] MEDS: Acetaminophen 500 MG TAB 1000 MG PO ×3 (05:59→23:41)
[2023-11-16 06:16] LABS: HGB 14.4 g/dL (13.5-17.5)
--- NOTE | 2023-11-16 06:37 | W.PM.PROGNOT ---
Date of Service Date of service: 11/16/23 Time of Service: 08:30 Assessment and Plan Assessment and plan (1) Spontaneous pneumothorax: Status: Acute Assessment and plan: 23-year-old man with spontaneous, recurrent left sided pneumothorax. Plan is for VATS apical blebectomy/wedge resection and pleurectomy/mechanical pleurodesis N.p.o. Type and screen Pre-op antibiotics Surgery this afternoon Subjective Subjective Interval history since last seen: No overnight events or interval changes. Exam Narrative Exam Narrative: General: Nontoxic, comfortable and interactive Neuro: Alert and oriented x 3 Psych: Good mood and affect, good insight and understanding into his condition Chest: Nonlabored breathing. No crepitus. Chest tube with minimal serous output. No airleak. Heart: Regular Objective Last Vital Signs Temp 97.5 F L 11/16/23 05:34 Pulse 62 11/16/23 05:34 Resp 17 11/16/23 05:34 BP 96/71 L 11/16/23 05:34 Pulse Ox 96 11/16/23 05:34 Laboratory Results - last 24 hr 11/15/23 11/16/23 11:15 05:57 Hgb 14.4 Hct 41.0 Plt Count 302 Time Spent with Patient Time Spent with Patient: <25 minutes Time was spent: preparing to see the patient(eg.review tests), obtaining and/or reviewing separately otained hiistory and counseling the patient
[2023-11-16 06:55] LABS: PTT Activated 31.8 sec (23.6-32.8); Prothrombin Time 10.5 sec (9.1-11.1)
[2023-11-16] MEDS: ELECTROLYTE-R SOLUTION 1,000 ML 30 ML IV (13:05)
--- NOTE | 2023-11-16 13:10 | CMPROGNOTE_ITS ---
Date of service: 11/16/23 Time of Service: 13:10 Care Management Progress Note Progress Note Text Progress Note Text: Maycol was sitting up in bed visiting with his when CM met with him. He had just returned from surgery and was still a little sleepy. Man informed CM that the surgeon told him that everything went well. He has some discomfort but was not in severe pain at the time of the visit. Maycol reported that he believes he will be discharged on Thursday and is very happy about that.. Discharge Potential Discharge Needs: Surgical F/U Appt Anticipated Barriers to Discharge: Medical Status Patient/Family Education Needs: Review discharge instructions, discuss Ask Me Three Transportation: Private vehicle Plan: Man will be discharged home with no new services when medically cleared. He will follow up with his community providers, surgeon and plan of care and trans port with his . CM will follow and support discharge needs. SDOH(Care Management) Screening Will the Patient Participate in the Screening?: Unable to obtain
[2023-11-16] MEDS: ceFAZolin 2 GM/50 ML BAG IVPB (13:34)
[2023-11-16] MEDS: Bupivacaine 0.25% Pres-Free 30 ML VIAL (14:21)
[2023-11-16] MEDS: Bupivacaine LIPOSOME/PF 133 MG/10 ML VIAL IJ (14:21)
--- NOTE | 2023-11-16 14:31 | LUN_PTH ---
PATIENT: Maycol Sesay LOC: U#:[id number] AGE/SX: 23/M ROOM: RE11/14/[address]: Dion Coronel : 2000 BED: A DIS: 11/25/2023 SPEC #: [id number] RECD: 11/16/23 18:15 STATUS: COLT REYvette #: [id number] STEFANIE: 11/16/23 14:[address]: Dion Coronel DEPT: Surgical Specimen RECD BY: Maureen Martin ENTERED: 11/16/23 18:17 SP TYPE: ASHWIN WU DR: Unknown,Unknown Tissues: 1 - LUNG BIOPSY 2 - PLEURAL TISSUE BIOPSY Procedures: GROSS AND MICRO LEVEL 4 GROSS AND MICRO LEVEL 5 Comments: [id number]
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
--- NOTE | 2023-11-16 15:42 | W.ANESPOSTOP ---
Postoperative Evaluation Date, Time and Location Date Performed: 11/16/23 Time Performed: 15:43 Patient Location: PACU Vital Signs Most Recent Imported Vital Signs: Most Recent Vital Signs Temp Pulse Resp BP Pulse Ox 36.7 C 68 24 120/78 99 11/16/23 15:35 11/16/23 15:35 11/16/23 15:36 11/16/23 15:35 11/16/23 15:36 Pain Score Most Recent Pain Score: Most Recent Pain Score Pain Level [Left Chest] 0 11/15/23 14:05 Pain Level 5 11/16/23 12:22 Assessment Mental Status: Awake (Alert & Oriented to Patient Baseline) Airway and Respiratory Function: Patent airway with normal (patient baseline) respiratory exam Cardiovascular Function: Hemodynamically Stable Hydration Status: Adequately Hydrated Nausea & Vomiting: No Nausea or Vomiting Pain: Pain is tolerable per patient Peripheral Nerve Block: Patient did not receive a nerve block
[2023-11-16] MEDS: Normal Saline 10 ML VIAL IJ (15:48)
[2023-11-16] MEDS: HYDROmorphone 2 MG/ML SYR IVP ×4 (15:48→16:32)
--- NOTE | 2023-11-16 16:26 | DI.RAD_ITS ---
Exam(s) XR PORTABLE CHEST AP EXAM: XR PORTABLE CHEST AP CLINICAL HISTORY: PACU film, s/p L VATS surgery - assess tube, etc. TECHNIQUE: 2D digital imaging was performed. COMPARISON: CR,XR XR PORTABLE CHEST AP from 11/15/2023 FINDINGS: Single AP portable view. The left pigtail pleural catheter has been replaced by a larger caliber left chest tube with its dist al tip at the apex level. Surgical suture line is seen in the left lung apex. No obvious pneumothor ax at this time. No infiltrates nor pleural effusions. No shift of midline structures. Heart size is normal No significant osseous findings IMPRESSION: As above. DATA REPOSITORY: RADIATION DOSE DELIVERED:
--- NOTE | 2023-11-16 17:03 | NUR.NOTE ---
PT brought back to the floor by PACU approx [id number], pt was awake, A&O x3, pain at 6/10, attempting to contact surgeon for toradol as the dilaudid and morphine have not helped him. VS: t-36.6, HR- 82, BP- 110/79, RR- 16, O2 sat- 95% on RA.Nursing Note:
[2023-11-16] MEDS: Normal Saline Flush 10 ML SYR IVP (19:07)
[2023-11-16] MEDS: MORPHine 2 MG/ML SYR IVP (19:07)
[2023-11-17] VITALS (7 sets, daily range): BP systolic 118–132; BP diastolic 67–74; PULSE 68–76; RESP 16–18; TEMP 36.6–37.3; O2SAT 97–98
[2023-11-17] MEDS: Acetaminophen 500 MG TAB 1000 MG PO ×3 (05:47→18:39)
--- NOTE | 2023-11-17 08:27 | W.PM.PROGNOT ---
Date of Service Date of service: 11/17/23 Time of Service: 08:28 Assessment and Plan Assessment and plan (1) Spontaneous pneumothorax: Status: Acute Assessment and plan: 23-year-old man postop day 1 from a left VATS apical wedge resection and parietal pleurectomy as well as mechanical pleurodesis for spontaneous, recurrent pneumothorax. He is hemodynamically stable and doing well. He does have a tiny airleak but his chest x-ray shows no apical space and there appears to be complete re-expansion of the lung. Pain is adequately controlled. Overall plan: Keep him to suction overnight Repeat chest x-ray in the morning Analgesia as needed DVT prophylaxis Subjective Subjective Interval history since last seen: No overnight events. Patient reports pain is adequately controlled. Little bit of shoulder blade pain. Exam Narrative Exam Narrative: General: Nontoxic, comfortable and interactive Neuro: Alert and oriented x 3 Psych: Good mood and affect, good insight and understanding Chest: Nonlabored breathing, no crepitus. Chest tube dressings are clean and dry and intact. The chest tube is to -20 suction. There is a very tiny airleak. 80 cc of serosanguineous fluid out overnight. Heart: Regular Objective Last Vital Signs Temp 97.9 F 11/16/23 23:49 Pulse 62 11/16/23 23:49 Resp 17 11/16/23 23:49 BP 111/71 11/16/23 23:49 Pulse Ox 97 11/17/23 05:54 Time Spent with Patient Time Spent with Patient: <25 minutes Time was spent: preparing to see the patient(eg.review tests), ordering medications,tests, procedures, indepentently interpreting results, counseling the patient and care coordination
--- NOTE | 2023-11-17 08:30 | DI.RAD_ITS ---
Exam(s) XR PORTABLE CHEST AP EXAM: XR PORTABLE CHEST AP CLINICAL HISTORY: portable upright, s/p L VATS wedge resection. TECHNIQUE: 2D digital imaging was performed. COMPARISON: CR XR PORTABLE CHEST AP from 11/16/2023 FINDINGS: Single AP portable view. Position of the left thoracotomy tube is unchanged with its distal tip in the apex adjacent to pulmon steve suture line. Heart size is upper normal. The mediastinum is not widened. Appearance of the lungs is unchanged from yesterday. Minimal if any significant left apical pneumoth orax. IMPRESSION: Stable position of left chest tube No evidence of significant size pneumothorax DATA REPOSITORY: RADIATION DOSE DELIVERED:
[2023-11-17] MEDS: Ketorolac 15 MG/ML VIAL IVP ×3 (08:35→21:00)
[2023-11-17] MEDS: Normal Saline Flush 10 ML SYR IVP ×3 (08:36→21:35)
--- NOTE | 2023-11-17 09:23 | NUR.NOTE ---
Nursing Note: legislative aide reported some bubbling in the chamber of the Pleur-evac over night that seemed to resolve. This morning during assessment, 1 large bubble noted in the chamber that took 30 seconds to go through. No crepitus noted, LS CTA, though diminished. Surgeon paged to notify. Will monitor closely.
--- NOTE | 2023-11-17 09:36 | NUR.NOTE ---
Nursing Note: Call back from surgeon, reported this mornings findings, surgeon stated that all was normal for this procedure. Will monitor.
--- NOTE | 2023-11-17 10:40 | CMPROGNOTE_ITS ---
Date of service: 11/17/23 Time of Service: 10:40 Care Management Progress Note Progress Note Text Progress Note Text: Maycol was lying in bed when CM met with him. He stated that he is doing well today, and is looking forward to returning home. Per MD, he may be ready for discharge in 24-48H. Maycol stated that his work has provided him with paperwork that needs to be filled out by the provider, stating restrictions that he may have when he is able to return to work. CM contacted the surgical office and spoke with the medical instructor, who offered to support the process of having the forms filled out by MD. CM brought the forms to the surgical office. CM noted that he does not have a PCP listed on his chart; Maycol stated that he went to his hospital follow up at [facility], and is establishing care with Blayne Louise. CM will continue to follow. Discharge Potential Discharge Needs: PCP F/U Appt and Surgical F/U Appt Anticipated Barriers to Discharge: Medical Status Patient/Family Education Needs: Review discharge instructions, discuss Ask Me Three Transportation: Private vehicle Plan: Man will be discharged home with no new services when medically cleared. He will follow up with his community providers, surgeon and plan of care and transport with his . CM will follow and support discharge needs. SDOH(Care Management) Screening Will the Patient Participate in the Screening?: Unable to obtain
--- NOTE | 2023-11-17 13:23 | PHA.REVIEW2 ---
Pharmacy Admission Review Admission Clinical Review Admission Pharmacy Review: (Updated 11/14/23 @ 00:04 by Zoie Roblero MD) Spontaneous pneumothorax (Acute) No Known Allergies Allergy (Unverified 11/13/23 22:27) Resuscitation Status Full Code Height 5 ft 8 in Weight 53.524 kg Pharmacy Admission Review Renal Dosing Renal Dosing: BUN 15 mg/dL (7-18) 11/13/23 22:37 Creatinine 1.0 mg/dL (0.70-1.30) 11/13/23 22:37 Medications needing adjustments: Reviewed (CrCl 86.23 mL/min) List of meds needing interventions: Current medications are okay Anticoagulation Anticoagulation: Hgb 14.4 g/dL (13.5-17.5) 11/16/23 05:57 Hct 41.0 % (40.0-50.0) 11/16/23 05:57 Plt Count 302 10^3/uL (130-400) 11/15/23 11:15 INR 1.0 (0.9-1.1) 11/16/23 05:57 Creatinine 1.0 mg/dL (0.70-1.30) 11/13/23 22:37 DVT Prophylaxis: Reviewed Medications: Heparin (q8h) Opiate Usage Evaluate Pain Scale/Pains Meds: Reviewed (PRN IVP morphine) Scheduled Bowel Reg ordered if on Opiates?: No Relevant Labs Relevant Labs: Sodium 141 mmol/L (136-145) 11/13/23 22:37 Potassium 3.6 mmol/L (3.5-5.1) 11/13/23 22:37 Chloride 103 mmol/L (98-107) 11/13/23 22:37 Electrolytes, C-Reactive P, ESR: Reviewed (No new labs for today) Cardiac Review BP, HR, EF%: Reviewed (BP/HR WNL) QTc Review QTc: Reviewed (408 from 11/13/23) IV to PO Switch IV Medications: Reviewed (ketorolac, morphine and ondansetron) Home Meds Home Med List reviewed: Reviewed Relevent Home Meds Not ordered & why?: No known home meds Current Meds Current Medication Order Review: Intervened Comments: Had order for cefazolin preop, was given yesterday prior to procedure. Discontinued order this morning.
[2023-11-18] MEDS: Ketorolac 15 MG/ML VIAL IVP (03:06)
[2023-11-18] MEDS: Acetaminophen 500 MG TAB 1000 MG PO ×4 (05:57→20:08)
[2023-11-18] MEDS: Heparin 5,000 UNITS/ML VIAL 5000 UNITS SC ×2 (05:58→15:23)
[2023-11-18 07:54] VITALS: BP 108/65; PULSE 65; RESP 14; TEMP 37; O2SAT 97
--- NOTE | 2023-11-18 08:21 | W.PM.PROGNOT ---
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 He is hemodynamically stable and doing well. He has been almost 48 hours on suction. He still has a tiny air leak and today, there is a little bit of space visible at the apex on x-ray. Overall plan: Waterseal - monitor for possible worsening of pneumothorax from airleak. Out of bed and ambulate Incentive spirometry DVT prophylaxis Non-? narcotic analgesia as needed Subjective Subjective Interval history since last seen: No overnight events. No issues. No pain. Exam Narrative Exam Narrative: General: Nontoxic, comfortable and interactive Neuro: Alert and oriented x 3 Psych: Good mood and affect, good insight and understanding Chest: Nonlabored breathing, no crepitus, no tenderness. Chest tube in good location. Good tidal of fluid in the chest tube. Tiny airleak remains with coughing. About 100 cc of serosanguineous fluid out overnight. Objective Last Vital Signs Temp 98.6 F 11/18/23 07:54 Pulse 65 11/18/23 07:54 Resp 14 11/18/23 07:54 BP 108/65 11/18/23 07:54 Pulse Ox 97 11/18/23 07:54 Time Spent with Patient Time Spent with Patient: <25 minutes Time was spent: preparing to see the patient(eg.review tests), ordering medications,tests, procedures, indepentently interpreting results, counseling the patient and care coordination
--- NOTE | 2023-11-18 08:30 | DI.RAD_ITS ---
Exam(s) XR PORTABLE CHEST AP EXAM: XR PORTABLE CHEST AP CLINICAL HISTORY: s/p VATS day 2, small airleak, r/o PTX. TECHNIQUE: 2D digital imaging was performed. COMPARISON: CR XR PORTABLE CHEST AP from 11/17/2023 FINDINGS: Single AP portable view. Heart size is upper normal. The mediastinum is not widened nor shifted. Position of the left chest tube is unchanged. Tiny remaining left apical pneumothorax seen just abov e the suture line; less than 10 percent. No infiltrates nor pleural effusions. IMPRESSION: Less than 10 percent remaining left apical pneumothorax. DATA REPOSITORY: RADIATION DOSE DELIVERED:
[2023-11-18 09:58] VITALS: O2SAT 98
--- NOTE | 2023-11-18 10:03 | PDOC.CMPRO ---
Date of service: 11/18/23 Time of Service: 10:03 Care Management Progress Note Progress Note Text Progress Note Text: Maycol was sitting up in a chair visiting with his when CM met with him. He appeared to be in good spirits and readily engaged with CM. Maycol stated that he is feeling well and remains hopeful he can be discharged later today or tomorrow. Todays chest Xray showed that he still has about a 10% pneumothorax in the apex of his left lung. The chest tube has been clamped to monitor whether the pneumothorax expands or reduces in size. Discharge Potential Discharge Needs: Surgical F/U Appt Anticipated Barriers to Discharge: Medical Status Patient/Family Education Needs: Review discharge instructions, discuss Ask Me Three Transportation: Private vehicle Plan: Man will be discharged home with no new services when medically cleared. He will follow up with his community providers, surgeon and plan of care and transport with his . CM will follow and support discharge needs. SDOH(Care Management) Screening Will the Patient Participate in the Screening?: Unable to obtain
[2023-11-18 11:19] VITALS: BP 116/61; PULSE 66; RESP 15; TEMP 36.7; O2SAT 96
[2023-11-18] MEDS: Normal Saline Flush 10 ML SYR IVP ×2 (15:23→20:08)
[2023-11-18 19:17] VITALS: BP 108/66; PULSE 74; RESP 18; TEMP 36.8; O2SAT 99
[2023-11-18 20:06] VITALS: RESP 20
[2023-11-18] MEDS: MORPHine 2 MG/ML SYR IVP (21:14)
[2023-11-18 23:54] VITALS: RESP 20
[2023-11-19] VITALS (9 sets, daily range): BP systolic 102–123; BP diastolic 66–80; PULSE 65–79; RESP 16–22; TEMP 36.8–37.3; O2SAT 96–100
[2023-11-19] MEDS: Acetaminophen 500 MG TAB 1000 MG PO ×4 (01:13→17:52)
[2023-11-19] MEDS: Normal Saline Flush 10 ML SYR IVP ×2 (07:23→21:48)
--- NOTE | 2023-11-19 08:30 | DI.RAD_ITS ---
Exam(s) XR PORTABLE CHEST AP EXAM: XR PORTABLE CHEST AP CLINICAL HISTORY: Rule out Left PTX - now waterseal TECHNIQUE: 2D digital imaging was performed of the chest. One image was obtained. An AP view was ob tained. COMPARISON: CR XR PORTABLE CHEST AP from 11/18/2023 FINDINGS: MEDIASTINUM: Normal. No midline shift. HEART: Normal. PULMONARY VASCULATURE: Normal. LUNGS: Clear. PLEURAL SPACE: There is a small persistent left apical pneumothorax seen between the 2nd and 3rd ribs posteriorly. BONE:Within normal limits for the patient's age. OTHER FINDINGS:There is a left chest tube with its tip in the left lung apex in stable position. IMPRESSION: Persistent small left apical pneumothorax is present. It appears stable compared to the examination from 11/18/2023. DATA REPOSITORY: RADIATION DOSE DELIVERED:
--- NOTE | 2023-11-19 08:38 | W.PM.PROGNOT ---
Date of Service Date of service: 11/19/23 Time of Service: 08:30 Assessment and Plan Assessment and plan (1) Spontaneous pneumothorax: Status: Acute Assessment and plan: 23-year-old man postop day 3 from left VATS apical wedge resection, pleurectomy and mechanical pleurodesis. He is hemodynamically stable and tolerating everything very well. Unfortunately subjectively his pneumothorax returned based off of the clicking feeling he notices and also on the chest x-ray this morning there is a small apical space that is significantly larger than it was yesterday. Unfortunately we need to put him back to suction for another 24 hours and see how he does. Subjective Subjective Interval history since last seen: Patient placed to waterseal last night. Unfortunately, this morning, he says he feels that small clicking sensation again. There is still a small air leak. He has no shortness of breath and really no chest pain.. Exam Narrative Exam Narrative: General: Nontoxic, comfortable and interactive Neuro: Alert and oriented x 3 Psych: Good mood and affect, good insight and understanding Chest: Nonlabored breathing. There is no crepitus anywhere. The chest tube is intact. There is about 50-60 cc of serous in the Pleur-evac. It titles very nicely. Small airleak Objective Last Vital Signs Temp 98.2 F 11/19/23 08:00 Pulse 79 11/19/23 08:00 Resp 18 11/19/23 08:00 BP 121/70 11/19/23 08:00 Pulse Ox 97 11/19/23 08:00 Time Spent with Patient Time Spent with Patient: 25-34 minutes Time was spent: preparing to see the patient(eg.review tests), ordering medications,tests, procedures, indepentently interpreting results, counseling the patient and care coordination
--- NOTE | 2023-11-19 09:14 | DI.VRAD_ITS ---
PROCEDURE INFORMATION: Exam: XR Chest Exam date and time: 11/19/2023 8:14 AM Age: 23 years old Clinical indication: Other: R/O ptx; Patient HX: R/op left ptx, now waterseal. TECHNIQUE: Imaging protocol: Radiologic exam of the chest. Views: 1 view. COMPARISON: CR XR PORTABLE CHEST AP 11/18/2023 8:35 AM (report not provided) FINDINGS: Tubes, catheters and devices: A left chest tube is again in place. Lungs: There are again surgical sutures at the left apex of the lung. The lungs are otherwise clear. Pleural spaces: A small left apical pneumothorax is again present, slightly more prominent with up to 19 mm pleural separation (previously 14 mm). No right pneumothorax. The costophrenic angles are sharp. Heart/Mediastinum: The cardiomediastinal silhouette is fairly stable in appearance. Bones/joints: Unremarkable. IMPRESSION: Slightly more prominent size of a small left apical pneumothorax as compared with 1 day prior, again with a left chest tube in place. Dictated and Authenticated by: Pb Valencia MD. Ordering:MACY Ashley MD
[2023-11-20 00:15] VITALS: BP 98/66; PULSE 82; RESP 20; TEMP 36.8; O2SAT 97
[2023-11-20] MEDS: Acetaminophen 500 MG TAB 1000 MG PO ×5 (00:15→23:22)
[2023-11-20 07:41] VITALS: BP 112/73; PULSE 64; RESP 18; TEMP 37.1; O2SAT 97
--- NOTE | 2023-11-20 09:58 | PGE_ITS ---
Date of Service Date of service: 11/20/23 Time of Service: 13:07 Assessment and Plan Assessment and plan (1) Air leaking from lung after procedure: Status: Acute Assessment and plan: 23-year-old man postop day 4 from a left VATS apical wedge resection for bleb disease and pleurectomy and pleurodesis. He is hemodynamically stable. His chest x-ray this morning looks perfect. There is no subcutaneous air. There is no residual pneumothorax after being put back to suction yesterday. Unfortunately, he continues to have a very tiny airleak. I have carefully inspected all of the suction tubing from the Pleur-evac all the way up to the chest wall and I do not appreciate any obvious place where the tube might be leaking and being the source of the air. Again, there is excellent titling in the Pleur-evac tubing. From what I can tell, I do not think the leak is coming from the connection between the Pleur-evac and the chest tube. There is no pneumothorax right now. I pulled the chest tube back about 4 cm to get it a little bit away from the apex. I then clamped the chest tube itself above the connection site. So far I have monitored him about 1 hour while clamped and there is no symptoms, no crepitus, no subjective complaints, no shortness of breath and no clicking that he has always felt previously. Will get a chest x-ray in another hour or two and see what whether or not there is a pneumo developing. If he does not develop a pneumothorax in the next hour or 2, then the chest tubing, must somehow be leaking the air inside. Overall plan: Chest tube clamped - I showed the nurse and the patient how to remove the tube if he develops any respiratory distress although at this point, an hour later, he has not. Chest x-ray 2-1/2 hours after clamp. If the chest x-ray looks good, I will leave him clamp for another couple of hours, take another chest x-ray and then remove his chest tube. If he develops a pneumothorax with a chest tube clamped, he will need to be discharged home with the valve tomorrow Subjective Subjective Interval history since last seen: No overnight events. He was put back to suction yesterday because of an enlarged pneumothorax in the apex after being on waterseal. He has no symptoms. The clicking in his chest went away going back to suction and removing the pneumothorax. Exam Narrative Exam Narrative: General: Nontoxic, comfortable and interactive psych: Good mood and affect, good insight and understanding Chest: Nonlabored breathing. There is no crepitus. Breath sounds are present bilateral. The chest tube still has a tiny airleak but is to -20 suction. 40- 50 cc of serosanguineous fluid out overnight. Objective Last Vital Signs Temp 98.8 F 11/20/23 07:41 Pulse 64 11/20/23 07:41 Resp 18 11/20/23 07:41 BP 112/73 11/20/23 07:41 Pulse Ox 97 11/20/23 07:41 Time Spent with Patient Time Spent with Patient: 35-49 minutes Time was spent: preparing to see the patient(eg.review tests), ordering m edications,tests, procedures, indepentently interpreting results, counseling the patient and care coordination
--- NOTE | 2023-11-20 10:05 | PDOC.CMPRO ---
Date of service: 11/20/23 Time of Service: 10:05 Care Management Progress Note Progress Note Text Progress Note Text: Maycol was sitting up in a chair visiting with his Halina when CM met with him. His informed CM that they had some good news. Maycol is feeling better and his chest tube has been clamped today. He was to have another chest xray at 2:30 pm and, if his lung has re-expanded, he may be able to go home later this afternoon. Maycol stated that he wants to go home but knows removing the chest tube may be painful, so he is a bit apprehensive. CM will follow.. Discharge Potential Discharge Needs: PCP F/U Appt Anticipated Barriers to Discharge: Medical Status Patient/Family Education Needs: Review discharge instructions, discuss Ask Me Three Transportation: Private vehicle Plan: Man will be discharged home with no new services when medically cleared. He will follow up with his community providers, surgeon and plan of care and transport with his . CM will continue to support discharge needs. SDOH(Care Management) Screening Will the Patient Participate in the Screening?: Unable to obtain
--- NOTE | 2023-11-20 10:22 | DI.RAD_ITS ---
Exam(s) XR PORTABLE CHEST AP EXAM: XR PORTABLE CHEST AP CLINICAL HISTORY: r/o L PTX. TECHNIQUE: 2D digital imaging was performed. COMPARISON: CR,XR XR PORTABLE CHEST AP from 11/19/2023 FINDINGS: Single AP portable view. Left chest tube remains in unchanged position. Distal tip is in the apex adjacent to the lung suture line. No obvious pneumothorax evident at this time. No pleural effusions. No infiltrates. Heart size is upper normal. The mediastinum is not widened. IMPRESSION: As above. No pneumothorax seen. DATA REPOSITORY: RADIATION DOSE DELIVERED:
[2023-11-20] MEDS: Normal Saline Flush 10 ML SYR IVP ×3 (13:23→19:29)
--- NOTE | 2023-11-20 14:39 | DI.RAD_ITS ---
Exam(s) XR PORTABLE CHEST AP EXAM: XR PORTABLE CHEST AP CLINICAL HISTORY: To be done at 2:30 pm! TECHNIQUE: 2D digital imaging was performed of the chest. One image was obtained. An AP view was ob tained. COMPARISON: CR,XR XR PORTABLE CHEST AP from 11/19/2023 CR XR PORTABLE CHEST AP from 11/20/2023 FINDINGS: MEDIASTINUM: Normal. HEART: Normal. PULMONARY VASCULATURE: Normal. LUNGS: Clear. PLEURAL SPACE: No pleural effusion or pneumothorax. BONE:Within normal limits for the patient's age. OTHER FINDINGS:There is again seen a left chest tube with its tip directed superior and medial in the left lung apex. IMPRESSION: No demonstrable left pneumothorax is present. DATA REPOSITORY: RADIATION DOSE DELIVERED:
[2023-11-20 15:17] VITALS: BP 118/68; PULSE 63; RESP 17; TEMP 36.9; O2SAT 97
[2023-11-20] MEDS: MORPHine 2 MG/ML SYR IVP (16:18)
[2023-11-20] MEDS: Ketorolac 15 MG/ML VIAL IVP (16:20)
--- NOTE | 2023-11-20 16:46 | DI.RAD_ITS ---
Exam(s) XR PORTABLE CHEST AP EXAM: XR PORTABLE CHEST AP CLINICAL HISTORY: R/o LEFT pneumothorax. Tube clamped. TECHNIQUE: 2D digital imaging was performed. COMPARISON: CR XR PORTABLE CHEST AP from 11/20/2023 and multiple prior chest x-rays. FINDINGS: Single AP portable view. Distal tip of the thoracotomy tube is in the left lung apex, unchanged. Adjacent to the left lung ap ex suture material. There is a small left apical pneumothorax now evident, less than 10 percent No infiltrates nor pleural effusions on either side. Heart size remains normal and mediastinum is not widened or shifted. IMPRESSION: Small left apical pneumothorax, less than 10 percent. DATA REPOSITORY: RADIATION DOSE DELIVERED:
[2023-11-20 19:30] VITALS: BP 105/73; PULSE 73; RESP 20; TEMP 37.1; O2SAT 98
[2023-11-20 23:29] VITALS: BP 102/62; PULSE 72; RESP 20; TEMP 37.1; O2SAT 96
[2023-11-21] MEDS: Acetaminophen 500 MG TAB 1000 MG PO ×3 (06:29→17:54)
[2023-11-21 07:35] VITALS: BP 107/66; PULSE 68; RESP 16; TEMP 36.4; O2SAT 96
--- NOTE | 2023-11-21 08:30 | DI.RAD_ITS ---
Exam(s) XR PORTABLE CHEST AP EXAM: XR PORTABLE CHEST AP CLINICAL HISTORY: r/o Left PTX. TECHNIQUE: 2D digital imaging was performed. COMPARISON: CR XR PORTABLE CHEST AP from 11/20/2023 FINDINGS: Single AP portable view. Heart size is upper normal. The mediastinum is not widened. Left thoracotomy tube is in unchanged position. Suture line seen in the left lung apex. Unchanged s mall remaining less than 10 percent left apical pneumothorax again noted. Remainder of the lungs are clear. No shift. IMPRESSION: As above. Unchanged from yesterday. DATA REPOSITORY: RADIATION DOSE DELIVERED:
[2023-11-21 08:47] LABS: Abs Immature Grans 0.01 10^3/uL (0.0-0.06); Absolute Basophil Count 0.07 10^3/uL (0.0-0.2); Absolute Eosinophil Count 0.73 10^3/uL (0.0-0.7); Absolute Lymphocyte Count 1.47 10^3/uL (1.2-3.4); Absolute Monocyte Count 0.44 10^3/uL (0.1-0.8); Absolute Neutrophil Count 4.84 10^3/uL (1.2-6.7); Basophils % 0.9 %; Eosinophils % 9.7 %; HCT 42.6 % (40.0-50.0); HGB 14.6 g/dL (13.5-17.5); Immature Grans % 0.1 %; Lymphocytes % 19.4 %; MCH 30.2 pg (27.0-33.0); MCHC 34.3 % (32.0-36.0); MCV 88 fL (80-95); MPV 9.5 fL (8.0-11.0); Monocytes % 5.8 %; Neutrophils % 64.1 %; Platelet Count 351 10^3/uL (130-400); RBC 4.83 10^6/uL (4.36-5.78); RDW 11.8 % (11.8-14.1); RDW-SD 37.9 fL; WBC 7.56 10^3/uL (4.4-10.8)
--- NOTE | 2023-11-21 09:25 | DI.VRAD_ITS ---
PROCEDURE INFORMATION: Exam: XR Chest Exam date and time: 11/21/2023 9:08 AM Age: 23 years old Clinical indication: Other: R/O left ptx TECHNIQUE: Imaging protocol: Radiologic exam of the chest. Views: 1 view. COMPARISON: CR XR PORTABLE CHEST AP 11/20/2023 4:44 PM FINDINGS: Tubes, catheters and devices: Left-sided thoracotomy tube in place unchanged. Lungs: Lungs are clear with no infiltrate or nodule. Pleural spaces: No pneumothorax or pleural effusion visualized. Heart/Mediastinum: Cardiomediastinal silhouette is normal. Bones/joints: Unremarkable. Other findings: Patient rotated LUANN IMPRESSION: Left-sided chest tube with no pneumothorax visualized. Dictated and Authenticated by: Dex Alfaro MD. Ordering:MACY Ashley MD
[2023-11-21] MEDS: Normal Saline Flush 10 ML SYR IVP ×2 (09:36→21:05)
--- NOTE | 2023-11-21 09:48 | W.PM.PROGNOT ---
Date of Service Date of service: 11/21/23 Time of Service: 11:00 Assessment and Plan Assessment and plan (1) Air leaking from lung after procedure: Status: Acute Assessment and plan: 23 yo man postop day 5 from left VATS apical wedge resection, pleurectomy and pleurodesis for recurrent spontaneous pneumothorax. He is hemodynamically stable and overall doing very well. Yesterday, he tolerated the clamp trial for 3-4 hours and did not develop any clinical symptoms but did develop a small apical pneumothorax on plain films. This morning, his air leak is noticeably better and only present with coughing. Previously(a couple days ago), on water seal, he had an air leak with any deep breath and had an apical pneumothorax with waterseal. Today, there is no appreciable pneumothorax on plain films and he has been on waterseal for 12 hours. I did offer to discharge him with a Heimlich valve and see us in the office on Thursday, however the patient and his partner are concerned about him going home with the chest tube because he has a very large dog (130 pounds) that likes to jump on him. He's very concerned the dog will somehow get at the chest tube and the patient himself is only 118 pounds . . . so I don't disagree with their risk assessment. They both favor staying in the hospital, on waterseal, until the air leak is gone under the presumption/hope it will be done in the next couple of days. I think that is completely reasonable. We can reassess Thursday if he still has a leak. Overall plan: Chest tube to waterseal Ambulation/incentive spirometry Nonnarcotic analgesia DVT prophylaxis Subjective Subjective Interval history since last seen: No overnight events. Yesterday we did a clamp trial and he tolerated for the first to 3 hours without any pain. A couple hours later an x-ray was done which showed a very small apical pneumothorax. He was put back to suction for 4 hours and then waterseal last night. Today, the airleak is much smaller and only present when he coughs. The x-ray this morning does not show pneumothorax on waterseal. We talked about going home with a Heimlich valve versus staying in the hospital on waterseal. Exam Narrative Exam Narrative: General: Nontoxic, comfortable and interactive Neuro: Alert and oriented x 3 Psych: Good mood and affect, good insight and understanding into his condition Chest: nonlabored breathing, no crepitus, breath sounds equal and present. PleurEvac has ~30-40 cc of serous fluid. Waterseal. Good tidaling in the tubing. No airleak on deep inspiration. Tiny leak with cough. Objective Last Vital Signs Temp 97.5 F L 11/21/23 07:35 Pulse 68 11/21/23 07:35 Resp 16 11/21/23 07:35 BP 107/66 11/21/23 07:35 Pulse Ox 96 11/21/23 07:35 Laboratory Results - last 24 hr 11/21/23 08:36 WBC 7.56 RBC 4.83 Hgb 14.6 Hct 42.6 MCV 88 MCH 30.2 MCHC 34.3 RDW 11.8 Plt Count 351 MPV 9.5 Immature Gran % 0.1 Neutrophils % 64.1 Lymphocytes % 19.4 Monocytes % 5.8 Eosinophils % 9.7 Basophils % 0.9 Nucleated RBC % 0.0 Absolute Neutrophils 4.84 Absolute Lymphocytes 1.47 Absolute Monocytes 0.44 Absolute Eosinophils 0.73 H Absolute Basophils 0.07 Time Spent with Patient Time Spent with Patient: 25-34 minutes Time was spent: preparing to see the patient(eg.review tests), indepentently interpreting results, counseling the patient and care coordination
[2023-11-21] MEDS: Heparin 5,000 UNITS/ML VIAL 5000 UNITS SC ×2 (13:38→21:05)
[2023-11-21 16:21] VITALS: BP 104/67; PULSE 70; RESP 16; TEMP 36.9; O2SAT 96
[2023-11-21 19:36] VITALS: BP 126/73; PULSE 73; RESP 16; TEMP 37; O2SAT 98
[2023-11-22] MEDS: Acetaminophen 500 MG TAB 1000 MG PO ×5 (00:33→23:54)
[2023-11-22] MEDS: Heparin 5,000 UNITS/ML VIAL 5000 UNITS SC ×3 (06:42→21:35)
--- NOTE | 2023-11-22 07:31 | DI.RAD_ITS ---
Exam(s) XR PORTABLE CHEST AP EXAM: XR PORTABLE CHEST AP CLINICAL HISTORY: r/o LEFT PTX. TECHNIQUE: 2D digital imaging was performed. COMPARISON: CR,XR XR PORTABLE CHEST AP from 11/21/2023 . Also numerous prior chest x-rays FINDINGS: Single AP portable view. Heart size is upper normal. The mediastinum is not widened nor shifted. Position of the left chest tube with distal tip in the apex is unchanged. Suture line in the left rome ng apex again noted. The size of the left apical pneumothorax is approximately 10-15 percent. There are no infiltrates and there are no obvious pleural effusions. IMPRESSION: Persistent small left apical pneumothorax. Position of chest tube is unchanged. There are no infilt rates nor pleural effusions. DATA REPOSITORY: RADIATION DOSE DELIVERED:
--- NOTE | 2023-11-22 07:38 | DI.VRAD_ITS ---
PROCEDURE INFORMATION: Exam: XR Chest Exam date and time: 11/22/2023 7:15 AM Age: 23 years old Clinical indication: Other: R/O left ptx; Prior surgery; Surgery date: 3-7 days post-operative; Surgery type: Chest tube placement TECHNIQUE: Imaging protocol: Radiologic exam of the chest. Views: 1 view. COMPARISON: CR XR PORTABLE CHEST AP 11/21/2023 9:08 AM FINDINGS: Lungs: Postsurgical changes of the left upper lung. No focal consolidation. Pleural spaces: Stable small left pneumothorax with chest tube in place. Heart/Mediastinum: No cardiomegaly. Bones/joints: Unremarkable. IMPRESSION: Stable small left pneumothorax with chest tube in place. Dictated and Authenticated by: Nesha Deshpande MD. Ordering:MACY Ashley MD
--- NOTE | 2023-11-22 08:29 | W.PM.PROGNOT ---
Date of Service Date of service: 11/22/23 Time of Service: 08:30 Assessment and Plan Assessment and plan (1) Air leaking from lung after procedure: Status: Acute Assessment and plan: 23-year-old man is postop day 6 from left VATS apical wedge resection, pleurectomy and mechanical pleurodesis for spontaneous recurrent pneumothorax. He is hemodynamically stable. His checks x-ray this morning shows a tiny apical pneumothorax. Rechecking yesterday's x-ray I am not convinced that there was not one yesterday although today it is much more visible. He had declined going home with a Heimlich valve in favor of staying on waterseal here in the hospital. Subjectively, his airleak has drastically decreased over the last couple of days although today it is about the same as it was yesterday. Recall that 2 days ago he tolerated the clamp trial for at least 2 or 3 hours but ultimately developed a small apical pneumothorax at that time. It did not progress into tension over those 3-4 hours. Since he is here in the hospital and is planning to stay until the air leak is gone, I am going to put him back to suction for few hours today to drain the apical space once again. It would probably make no difference but he is here in the hospital anyway and so we will do another short suction interval followed by waterseal again tonight and repeat plain films in the morning. Overall plan: -20 suction at noon Waterseal 10 PM Chest x-ray in a.m. DVT prophylaxis Nonnarcotic analgesia Reconsider discharge with Heimlich valve in the morning if still leaking. Subjective Subjective Interval history since last seen: No overnight events. No clinical changes. No shortness of breath. Says he felt a clicking sensation for about 1 minute this morning but now it is gone. Still notices a tiny air leak with coughing. Exam Narrative Exam Narrative: General: Nontoxic, comfortable and interactive Neuro: Alert and oriented x 3 Psych: Good mood and affect, good insight and understanding. He is not noticeably frustrated or discouraged. Chest: Nonlabored breathing. Breath sounds are clear and equal and present bilateral. There is no crepitus anywhere. Chest tube: Good tidaling. Another 30-40 cc of serous fluid out overnight. There is a tiny air leak when coughing only. Deep breathing has no leak. He is on waterseal. Objective Last Vital Signs Temp 98.6 F 11/21/23 19:36 Pulse 73 11/21/23 19:36 Resp 16 11/21/23 19:36 BP 126/73 11/21/23 19:36 Pulse Ox 98 11/21/23 19:36 Laboratory Results - last 24 hr 11/21/23 08:36 WBC 7.56 RBC 4.83 Hgb 14.6 Hct 42.6 MCV 88 MCH 30.2 MCHC 34.3 RDW 11.8 Plt Count 351 MPV 9.5 Immature Gran % 0.1 Neutrophils % 64.1 Lymphocytes % 19.4 Monocytes % 5.8 Eosinophils % 9.7 Basophils % 0.9 Nucleated RBC % 0.0 Absolute Neutrophils 4.84 Absolute Lymphocytes 1.47 Absolute Monocytes 0.44 Absolute Eosinophils 0.73 H Absolute Basophils 0.07 Time Spent with Patient Time Spent with Patient: <25 minutes Time was spent: preparing to see the patient(eg.review tests), ordering medications,tests, procedures, indepentently interpreting results, counseling the patient and care coordination
[2023-11-22] MEDS: Normal Saline Flush 10 ML SYR IVP ×2 (09:45→21:34)
[2023-11-22 09:59] VITALS: BP 102/63; PULSE 85; RESP 16; TEMP 36.8; O2SAT 97
--- NOTE | 2023-11-22 17:19 | NUR.NOTE ---
Nursing Note: Chest tube was connected to suction at 12:[address] Jean Baptiste.
[2023-11-22 22:55] VITALS: RESP 20
[2023-11-23 00:08] VITALS: BP 111/74; PULSE 77; RESP 16; TEMP 36.5; O2SAT 98
--- NOTE | 2023-11-23 00:44 | W.PM.PROGNOT ---
Date of Service Date of service: 11/22/23 Time of Service: 23:55 Assessment and Plan Assessment and plan (1) Air leaking from lung after procedure: Status: Acute Assessment and plan: 23 yo man POD 6 from L VATS wedge resection, pleurectomy and pleuredesis who reportedly has increasing chest discomfort, shortness of breath, but is otherwise HD stable, on room air and with normal resp effort. Per RN this is 2 hours in etiology at the time I am being notified. I ordered, verbally over the phone, a STAT chest XR be performed. This was at 23:55. I also reiterated the EMR order for waterseal at 10pm. RN repeats back the orders to me and confirms that a STAT chest XR will be ordered and the chest tube will be placed to waterseal as already ordered in the EMR. I instructed the RN to page me IMMEDIATELY, for any other clinical changes, without any delay. My best guess is that this is related to the patient's chest tube location, however, we need to assess and rule out anything more serious. At time of this note, the chest XR has not been completed. Subjective Subjective Interval history since last seen: Nursing staff paged me at 23:55 to report increasing chest pain and shortness of breath/inability to do deep incentive spirometry. Per RN, this started at 10pm, almost 2 hours ago. Per RN, the patient is still to -20 suction and has NOT been placed to water seal. Objective Last Vital Signs Temp 97.7 F 11/23/23 00:08 Pulse 77 11/23/23 00:08 Resp 16 11/23/23 00:08 BP 111/74 11/23/23 00:08 Pulse Ox 98 11/23/23 00:08 Time Spent with Patient Time Spent with Patient: <25 minutes Time was spent: ordering medications,tests, procedures, referring, communicating with other health personal care service provider and care coordination
--- NOTE | 2023-11-23 01:30 | DI.RAD_ITS ---
Exam(s) XR PORTABLE CHEST AP EXAM: XR PORTABLE CHEST AP CLINICAL HISTORY: S/p VATS with Left chest tube , TECHNIQUE: 2D digital imaging was performed. COMPARISON: CR,XR XR PORTABLE CHEST AP from 11/22/2023 FINDINGS: The left chest tube is unchanged in position. Small left apical pneumothorax is unchanged in size. Left upper lobe suture material again noted. The lungs are otherwise clear. HEART: Normal size. AORTA: Normal diameter. BONES: Unremarkable for age. Soft tissues: Small amount of air in the lower left chest wall. IMPRESSION: Stable size of the left pneumothorax. DATA REPOSITORY: RADIATION DOSE DELIVERED:
--- NOTE | 2023-11-23 01:52 | DI.VRAD_ITS ---
PROCEDURE INFORMATION: Exam: XR Chest Exam date and time: 11/23/2023 1:44 AM Age: 23 years old Clinical indication: Other: S/P vats with left chest tube , TECHNIQUE: Imaging protocol: Radiologic exam of the chest. Views: 1 view. COMPARISON: CR XR PORTABLE CHEST AP 11/22/2023 7:15 AM FINDINGS: Tubes, catheters and devices: Left apical chest tube present. Chain suture evident at the left lung apex. Left apical pneumothorax with maximum air gap of 1.7 cm. Lungs: Lungs otherwise clear. No pleural fluid. Pleural spaces: See Tubes, catheters and devices finding. Heart/Mediastinum: Unremarkable. No cardiomegaly. Bones/joints: Unremarkable. IMPRESSION: Left apical chest tube present. Chain suture evident at the left lung apex. Left apical pneumothorax with maximum air gap of 1.7 cm. Dictated and Authenticated by: Gerry Alegre MD. Ordering:MACY Ashley MD
[2023-11-23] MEDS: Acetaminophen 500 MG TAB 1000 MG PO ×3 (05:52→18:51)
[2023-11-23] MEDS: Heparin 5,000 UNITS/ML VIAL 5000 UNITS SC ×2 (05:52→14:33)
[2023-11-23 08:12] VITALS: BP 98/65; PULSE 85; RESP 18; TEMP 36.9; O2SAT 98
[2023-11-23] MEDS: Normal Saline Flush 10 ML SYR IVP ×3 (08:28→19:28)
--- NOTE | 2023-11-23 08:40 | DI.RAD_ITS ---
Exam(s) XR PORTABLE CHEST AP EXAM: XR PORTABLE CHEST AP CLINICAL HISTORY: r/o left PTX. TECHNIQUE: 2D digital imaging was performed. COMPARISON: CR,XR XR PORTABLE CHEST AP from 11/23/2023 FINDINGS: The left chest tube is unchanged in position. LUNGS: Clear. No change in size of small left apical pneumothorax. HEART: Normal size. AORTA: Normal diameter. BONES: Unremarkable for age. Soft tissues: Unremarkable. IMPRESSION: Stable size of small left apical pneumothorax. DATA REPOSITORY: RADIATION DOSE DELIVERED:
--- NOTE | 2023-11-23 10:33 | PDOC.CMPRO ---
Date of service: 11/23/23 Time of Service: 10:33 Care Management Progress Note Progress Note Text Progress Note Text: Fahad was sitting up on his bed visiting with Halina when CM met with him. He admitted to being disappointed that his pneumothorax has not resolved and that he still needs to be in the hospital. He saw Dr. Franks today and was given a few options. He can be discharged with the chest tube but Fahad is not comfortable with that. He can have the tube removed and discharge with a Heimlich valve or remain in the hospital until he no longer needs the chest tube. The current plan is to leave him on water seal tonight and reassess in the morning. Discharge Potential Discharge Needs: PCP F/U Appt and Surgical F/U Appt Anticipated Barriers to Discharge: Medical Status Patient/Family Education Needs: Review discharge instructions, discuss Ask Me Three Transportation: Private vehicle Plan: Man will be discharged home with no new services when medically cleared. He will follow up with his community providers, surgeon and plan of care and transport with his . CM will continue to support discharge needs. SDOH(Care Management) Screening Will the Patient Participate in the Screening?: Unable to obtain
[2023-11-23] MEDS: Ketorolac 15 MG/ML VIAL IVP (16:04)
[2023-11-23 16:07] VITALS: BP 105/69; PULSE 94; RESP 17; TEMP 37.7; O2SAT 95
--- NOTE | 2023-11-23 16:35 | W.PM.PROGNOT ---
Date of Service Date of service: 11/23/23 Time of Service: 16:37 Assessment and Plan Assessment and plan (1) Air leaking from lung after procedure: Status: Acute Assessment and plan: I reviewed the nature of postoperative air leaks after VATS with Man. We reviewed his chest x-rays together. I think it is very reassuring that the lung has remained mostly inflated even with chest tube clamping. But he certainly has visceral air leak, with some risk of recurrent pneumothorax of the chest tube was pulled. Leave him on waterseal overnight, and reassess tomorrow. I reminded him that discharge with a Heimlich valve would also be an option, but he is quite hesitant given reasons that are described in other notes. Subjective Subjective Interval history since last seen: Man had some pain mostly on the left subscapular area last night. It moved a little bit lower this morning. Tends to come and go a bit. He denies any subjective shortness of breath. Exam Chest Other: Lungs are clear bilaterally. Cough is strong. He is got a forced expiratory air leak. Incisions are all clean. Objective Last Vital Signs Temp 99.9 F H 11/23/23 16:07 Pulse 94 H 11/23/23 16:07 Resp 17 11/23/23 16:07 BP 105/69 11/23/23 16:07 Pulse Ox 95 11/23/23 16:07 Time Spent with Patient Time Spent with Patient: 35-49 minutes Time was spent: preparing to see the patient(eg.review tests), ordering medications,tests, procedures, referring, communicating with other health child care center assistant director, indepentently interpreting results and counseling the patient
[2023-11-23 23:13] LABS: HCT 38.7 % (40.0-50.0); HGB 13.5 g/dL (13.5-17.5); MCH 30.1 pg (27.0-33.0); MCHC 34.9 % (32.0-36.0); MCV 86 fL (80-95); MPV 9.4 fL (8.0-11.0); Platelet Count 387 10^3/uL (130-400); RBC 4.48 10^6/uL (4.36-5.78); RDW 11.8 % (11.8-14.1); RDW-SD 37.2 fL; WBC 8.66 10^3/uL (4.4-10.8)
[2023-11-23 23:57] VITALS: BP 92/57; PULSE 78; RESP 19; TEMP 36; O2SAT 96
--- NOTE | 2023-11-24 | DI.RAD_ITS ---
Exam(s) XR CHEST 2V PA LATERAL EXAM: XR CHEST 2V PA LATERAL CLINICAL HISTORY: Air leak after VATS TECHNIQUE: 2D digital imaging was performed. Two views. COMPARISON: CR XR PORTABLE CHEST AP from 11/23/2023 FINDINGS: HEART: Normal size. Aorta: Not dilated. PULMONARY VASCULATURE: Normal. MEDIASTINUM: Unremarkable. LUNGS: Clear. PLEURAL SPACE: No change in position left-sided chest tube. Lung edge not clearly seen on today's ex am. Could indicate some improvement in the. Suture material again noted at left lung apex. BONE:Unremarkable for age. SOFT TISSUES: Unremarkable. IMPRESSION: stable position of chest tube. Improvement in left pneumothorax. DATA REPOSITORY: RADIATION DOSE DELIVERED:
[2023-11-24] MEDS: Heparin 5,000 UNITS/ML VIAL 5000 UNITS SC ×3 (00:01→16:16)
[2023-11-24] MEDS: Acetaminophen 500 MG TAB 1000 MG PO ×4 (06:39→17:14)
[2023-11-24 07:45] VITALS: BP 94/64; PULSE 68; RESP 20; TEMP 37; O2SAT 97
[2023-11-24] MEDS: Normal Saline Flush 10 ML SYR IVP ×2 (08:22→20:00)
--- NOTE | 2023-11-24 09:59 | PDOC.CMPRO ---
Date of service: 11/24/23 Time of Service: 09:59 Care Management Progress Note Progress Note Text Progress Note Text: Fahad was sitting up in bed visiting with Halnia when CM met with him. He appeared to be in good spirits even though he has been in the hospital for 10 days. He informed CM that Dr. Franks was going to return later in the day and to withdraw his chest tube a few inches to see if he could tolerate it. CM checked back later and the procedure had been done and Maycol was feeling good. Per Dr. Franks, a repeat chest xray will be done to evaluate whether or not Maycol's lung can remain inflated with a small air leak. CM will follow. Discharge Potential Discharge Needs: PCP F/U Appt and Surgical F/U Appt Anticipated Barriers to Discharge: Medical Status Patient/Family Education Needs: Review discharge instructions, discuss Ask Me Three Transportation: Private vehicle Plan: Man will be discharged home with no new services when medically cleared. He will follow up with his community providers, surgeon and plan of care and transport with his . CM will continue to support discharge needs. SDOH(Care Management) Screening Will the Patient Participate in the Screening?: Unable to obtain
[2023-11-24] MEDS: LORazepam 1 MG TAB PO (13:48)
[2023-11-24 15:20] VITALS: BP 110/70; PULSE 80; RESP 18; TEMP 36.6; O2SAT 97
--- NOTE | 2023-11-24 15:45 | W.PM.PROGNOT ---
Date of Service Date of service: 11/24/23 Time of Service: 15:45 Assessment and Plan Assessment and plan (1) Air leaking from lung after procedure: Status: Acute Assessment and plan: Follow-up chest x-ray is interpreted as a little bit improved compared to yesterday, with smaller evidence of apical pneumothorax. He does, however, still have a forced expiratory air leak. In light of the favorable appearance of the chest x-ray, I explained to Man that backing the chest tube out a bit seems like a very reasonable option at this point. This will give us the ability to assess whether or not the lung will be able to remain inflated in the presence of a small air leak. Hopefully, if I can backed the tube a little bit away from the apex adhesions of the surrounding lung will support it, and the gradient across the airleak may decrease as the tube is backed away. I did cut the stitch, back to to about 9 cm of the skin. He tolerated this just fine we will repeat a chest x-ray for this as well. Assuming it stays completely completely back to further, the other. Obviously, if he has any other clinical changes that we may need to rethink that plan. Subjective Subjective Interval history since last seen: Man has been feeling about the same as yesterday. Although he does describe a little bit of some clicking sensation in his chest that he experienced around the time of his last pneumothorax. He has been up and out of bed and ambulating without much difficulty. Exam Resp Auscultation: clear to auscultation bilaterally Other: There remains a forced expiratory air leak, it may be a little bit improved compared to yesterday. Objective Last Vital Signs Temp 97.9 F 11/24/23 15:20 Pulse 80 11/24/23 15:20 Resp 18 11/24/23 15:20 BP 110/70 11/24/23 15:20 Pulse Ox 97 11/24/23 15:20 Laboratory Results - last 24 hr 11/23/23 22:57 WBC 8.66 RBC 4.48 Hgb 13.5 Hct 38.7 L MCV 86 MCH 30.1 MCHC 34.9 RDW 11.8 Plt Count 387 MPV 9.4 Time Spent with Patient Time Spent with Patient: 25-34 minutes Time was spent: preparing to see the patient(eg.review tests), indepentently interpreting results and counseling the patient
--- NOTE | 2023-11-24 15:49 | CHAPLAIN ---
I had a brief visit with Maycol, explained my role, and offered support. He said he's fine right now. I will continue to check in. He had a visitor in the room with him.
[2023-11-24 20:40] VITALS: RESP 20
[2023-11-24 23:38] VITALS: BP 102/78; PULSE 75; RESP 18; TEMP 36; O2SAT 100
--- NOTE | 2023-11-25 | DI.RAD_ITS ---
Exam(s) XR PORTABLE CHEST AP EXAM: XR PORTABLE CHEST AP CLINICAL HISTORY: Manipulation of chest tube TECHNIQUE: 2D digital imaging was performed. COMPARISON: CR XR CHEST 2V PA LATERAL from 11/24/2023 FINDINGS: Left chest tube again noted which has been pulled inferiorly compared with prior.. LUNGS: Suture material again noted at left lung apex. No lung markings are seen superior to this lev el. A tiny pneumothorax may is visible laterally. The lungs are otherwise clear. No pleural effusi on. HEART: Normal size. AORTA: Normal diameter. BONES: Unremarkable for age. Soft tissues: Unremarkable. IMPRESSION: Change in position of left chest tube. Tiny left pneumothorax. DATA REPOSITORY: RADIATION DOSE DELIVERED:
[2023-11-25] MEDS: Acetaminophen 500 MG TAB 1000 MG PO ×3 (00:01→11:48)
[2023-11-25] MEDS: Heparin 5,000 UNITS/ML VIAL 5000 UNITS SC ×2 (00:02→08:24)
[2023-11-25 00:30] VITALS: RESP 20
[2023-11-25 06:05] VITALS: RESP 18
[2023-11-25 07:45] VITALS: BP 98/67; PULSE 86; RESP 18; TEMP 36.7; O2SAT 97
[2023-11-25] MEDS: Normal Saline Flush 10 ML SYR IVP (08:25)
[2023-11-25] MEDS: LORazepam 0.5 MG TAB PO (11:49)
[2023-11-25 15:00] VITALS: BP 102/82; PULSE 81; RESP 16; TEMP 36.9; O2SAT 97
--- NOTE | 2023-11-25 16:09 | DI.RAD_ITS ---
Exam(s) XR PORTABLE CHEST AP EXAM: XR PORTABLE CHEST AP CLINICAL HISTORY: chest tube removal TECHNIQUE: 2D digital imaging was performed of the chest. One image was obtained. An AP view was ob tained. COMPARISON: CR XR PORTABLE CHEST AP from 11/23/2023 CR XR CHEST 2V PA LATERAL from 11/24/2023 CR XR PORTABLE CHEST AP from 11/25/2023 FINDINGS: The patient is slightly rotated. MEDIASTINUM: Normal. HEART: Normal. PULMONARY VASCULATURE: Normal. LUNGS: Clear. PLEURAL SPACE: There is a persistent left pneumothorax. The lung is 3.3 cm from the apex of the yaquelin thorax. It is at the level of the 3rd left rib which is unchanged compared to the prior examination. BONE:Within normal limits for the patient's age. OTHER FINDINGS:The left chest tube has been removed. IMPRESSION: 1. Interval removal of the left chest tube. 2. Stable size of the left pneumothorax when compared to the examination from earlier in the day. DATA REPOSITORY: RADIATION DOSE DELIVERED:
--- NOTE | 2023-11-25 16:32 | DSE_ITS ---
Date of service: 11/25/23 Time of Service: 16:32 DS: Diagnosis Discharge Diagnosis (1) Air leaking from lung after procedure: Status: Acute Asessment and Plan: post -operative follow up next week Discharge Plan Disposition Patient Disposition: Home Condition: Serious Condition: Improving Discharge Details Reason For Visit: spont left PTX Admit Date/Time: 11/14/23 00:34 Admit Provider: Dion Coronel Attending Provider: Dion Coronel Primary Care Provider: Unknown,Unknown Hospital Course Hospital Course: Maycol is 23 years old and he was admitted with a recurrent spontaneous left pneumothorax. Tube thoracostomy was performed with satisfactory expansion of the lung. He underwent VATS with stapled bleb resection and apical pluerectomy with pleuaradesis. His post-operative course was complicated by airleak. He underwent several trials of suction an waterseal. The airleak slowly decreased. He tolerated tube clamping with minimal change in the pneumothorax. He was subsequently maintained on waterseal and the tube was backed out on two occasions. Airleak resolved and the tube was removed with minimal expansion of some apical pneumothorax. He was asymptomatic and discharged with outpatient follow up. Home Meds and New Rx's Prescriptions: No Action No Known Home Meds Discharge Instructions Instructions: Video-Assisted Thoracic Surgery (DC) Additional Instructions: Fahad, it was very nice meeting you in the hospital and I am glad that you are making a recovery from surgery. As we discussed, the office will call tomorrow to set up a follow up appointment next week and we will reassess with a CXR on that day. If you develop any chest pain or shortness of breath in the interum, please call the office during regular business hours or the hospital to page the surgeon sales and production manager if it is after 4 PM. 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 Leave the bandage in place for 72 hours, then remove. Wash all incisions with arm soapy water. Replae a simple bandaid on the chest tube site after every shower. Don't worry about the stitch. I will remove that in the office. Please keep the lifting less than 10 lbs until I see you next week. You should refrain from work until we see each other in the office and we can reassess at that point. Try the breathing exercises listed below once you get home. ? Breathing control (BC): Patients inhale through the nose slowly and deeply, held for about three seconds, then exhale for about six seconds through pursed lips. ? Thoracic expansion exercises (CAROLA): Patients inhale through the nose actively and deeply, hold for about three seconds, then exhale passively and relaxedly. ? Forced expiration technique (FET): Patients inhale through the nose slowly and deeply, then contract the chest and abdominal wall muscles while holding the mouth open to squeeze the secretion out, which sounded like the word ?oropeza? du ring exhalation. Two to three huffs are performed during one exhalation. Begin with BC. Do 3 cycles, followed byt CAROLA for 3, BC for 3, FET for 3 and BC for 3. Do this in the morning when you wake up. Once midday and one more time nefore going to sleep. You can feel free to do it more often if yuo remember, but try to get at least 3 rounds per day. If you find it uncomfortable at all, then don't do it. It is not critical. Stand Alone Forms: Nursing Discharge Form Activity:: no heavy lifting Equipment/Supplies:: No Equipment Needed Diet:: As Tolerated DS: Summary Time Spent with Patient providing and/or coordinating discharge services: Greater than 30 minutes Status at Discharge Functional status at discharge: independent ambulation Overall status at discharge: patient is progressing back to baseline Mental Status: mental status grossly normal Speech and Movement: speech and movement normal Mood: congruent mood Affect: normal affect Quality:SDOH Health Related Social Needs: No Data to Display Exam Resp Other: equal and clear lung sounds. wounds are clean Psych Mental Status: mental status grossly normal Speech and Movement: speech and movement normal Mood: congruent mood Affect: normal affect DS: Data Vitals/I&O Vitals and I&O: Vital Signs Temperature 98.4 F 11/25/23 15:00 Temperature Source Tympanic 11/25/23 15:00 Pulse 81 11/25/23 15:00 Pulse Rhythm Regular 11/25/23 09:30 Pulse 76 11/16/23 16:36 Respiratory Rate 16 11/25/23 15:00 Respiratory Effort Normal 11/25/23 09:30 Respiratory Depth Normal 11/25/23 02:34 Respiratory Pattern Normal 11/25/23 02:34 Blood Pressure 102/82 11/25/23 15:00 Blood Pressure Mean 90 11/16/23 16:35 Blood Pressure Position Supine 11/13/23 22:04 Pulse Oximetry 97 11/25/23 15:00 Respiratory End-tidal CO2 38 11/16/23 16:36 Oxygen Delivery Method Room Air 11/25/23 15:00 Oxygen Flow Rate 0 11/25/23 15:00 Pain Level 0 11/25/23 07:45 Comment RN Notified 11/16/23 05:34 Intake & Output 11/24/23 11/25/23 11/25/23 23:59 11:59 23:59 Intake Total 500 / 770 Output Total 360 / 360 Balance 500 / 750 -360 / -360 Intake: IV Oral 480 / 730 Output: Chest Tube Drainage 360 / 360 Other: Urine Color Pale Yellow Urine Appearance Clear Clear Urine Odor None Comment unable to assess. Independent in the room. patient voids i ndependently in the bathroom Stool Size Moderate Stool Characteristics Formed Voiding Methods Toilet Toilet Data Completed and Pending Labs on day of discharge: Labs from last 24 hours 11/25/23 05:35 WBC Cancelled RBC Cancelled Hgb Cancelled Hct Cancelled MCV Cancelled MCH Cancelled MCHC Cancelled RDW Cancelled Plt Count Cancelled MPV Cancelled PFSH All Active Problems Air leaking from lung after procedure (Acute) Vapes nicotine containing substance (Acute) Spontaneous pneumothorax (Acute) Social History Smoking/Tobacco Use Status: Former Tobacco Use Quit Date: 10/26/23 Tobacco: How many years used: 6 Smoking risk assessment performed?: Yes Alcohol Intake: never Housing: house Time Spent with Patient Time Spent with Patient: <45 minutes Time was spent: preparing to see the patient(eg.review tests), indepentently interpreting results, counseling the patient and care coordination
--- NOTE | 2023-11-26 18:26 | PDOC.CMDIS ---
Date of service: 11/25/23 Time of Service: 18:26 Care Management Discharge Plan Reason for Hospitalization: Spontaneous left pneumothorax Discharge Plan: Man will be discharged home when medically cleared with close outpatient follow up with surgeon, community providers as well as his plan of care as prescribed. He will transport via private vehicle with his . Patient/Family Education Needs: Review discharge instructions and self care needs upon discharge. SDOH Health Related Social Needs: No Data to Display
== END 2023-11-25 17:36 | disposition home or self-care (01) | DRG 164 ==
LOC: ER 11-14 00:41 → MS 11-14 01:24
PROVIDERS: Surgery; Admitting Provider Student in an Organized Health Care Education/Training Program; Emergency Provider Student in an Organized Health Care Education/Training Program; Visit Provider Student in an Organized Health Care Education/Training Program
PROC: 0BJ08ZZ Inspection of Tracheobronchial Tree, Via Natural or Artificial Opening Endoscopic (ICD-10-PCS; CPT 32601; principal; 2023-11-16 13:30)
DX: J93.11 Primary spontaneous pneumothorax; U07.0 Vaping-related disorder; F17.290 Nicotine dependence, other tobacco product, uncomplicated; J82.81 Chronic eosinophilic pneumonia
CPT/HCPCS: 32666; 31622; 32656; 00123; 32554; 36415; 71250; 80053; 82805; 85027; 86850; 86900; 86901; 88305; 93005; 96374; 96375; 99156; 99157; 99285; 71045; 71046; 85014; 85018; 85025; 85049; 85610; 85730; 88307; 93010; C9290; J0131; J0171; J0665; J0690; J1100; J1170; J1644; J1805; J1885; J2250; J2270; J2371; J2405; J2704; J3010; J3475

== ENCOUNTER → 2023-12-01 01:05 | Outpatient (CLI) | payer BC, SELFPAY ==
--- NOTE | 2023-12-01 13:34 | DI.RAD_ITS ---
Exam(s) XR CHEST 2V PA LATERAL EXAM: XR CHEST 2V PA LATERAL CLINICAL HISTORY: f/u pnemothorax, air leak after chest tube,J95.812,VAPES NICOTINE. TECHNIQUE: 2D digital imaging was performed. COMPARISON: CR,XR XR PORTABLE CHEST AP from 11/23/2023 CR XR PORTABLE CHEST AP from 11/23/2023 CR XR CHEST 2V PA LATERAL from 11/24/2023 CR XR PORTABLE CHEST AP from 11/25/2023 CR XR PORTABLE CHEST AP from 11/25/2023 FINDINGS: 2 views: Heart size is normal. The mediastinum is not widened or shifted. Again noted is suture line in the superior aspect of the left lung. The size of the left-sided pneumothorax which was evident on the most recent chest x-ray of has decreased. There is presently a small apical pneumothorax and some apical fluid as well as a s mall left pleural effusion which was not evident 6 days ago on 11/25/2023. IMPRESSION: Compared to 11/25/2023 the size of the left pneumothorax has decreased. There is, however, small dominick unt of left apical fluid as well as a small left pleural effusion now evident. No shift of midline s tructures. DATA REPOSITORY: RADIATION DOSE DELIVERED:
== END ==
PROVIDERS: PCP Student in an Organized Health Care Education/Training Program; Visit Provider Surgery
DX: Z72.0 Tobacco use (principal); J95.812 Postprocedural air leak
CPT/HCPCS: 71046

== ENCOUNTER → 2023-12-08 01:09 | Outpatient (CLI) | payer BC, SELFPAY ==
--- NOTE | 2023-12-08 09:05 | DI.RAD_ITS ---
Exam(s) XR CHEST 2V PA LATERAL EXAM: XR CHEST 2V PA LATERAL CLINICAL HISTORY: left effusion after VATS,J90 TECHNIQUE: 2D digital imaging was performed of the chest. Two images were obtained. PA and lateral views were obtained. COMPARISON: CR XR PORTABLE CHEST AP from 11/25/2023 CR XR CHEST 2V PA LATERAL from 12/01/2023 FINDINGS: MEDIASTINUM: Normal. HEART: Normal. PULMONARY VASCULATURE: Normal. LUNGS: Clear. PLEURAL SPACE: No pleural effusion or pneumothorax. BONE:Within normal limits for the patient's age. OTHER FINDINGS:Normal. IMPRESSION: 1. No acute pulmonary findings. 2. No demonstrable left pneumothorax persists. However, if there is continued concern, an inspirator y and expiratory view of the chest is recommended. DATA REPOSITORY: RADIATION DOSE DELIVERED:
== END ==
PROVIDERS: PCP Student in an Organized Health Care Education/Training Program; Visit Provider Surgery
DX: J90 Pleural effusion, not elsewhere classified (principal)
CPT/HCPCS: 71046

== ENCOUNTER → 2023-12-16 00:38 | Outpatient (CLI) | payer BC, SELFPAY ==
--- NOTE | 2023-12-16 08:30 | DI.US_ITS ---
APPROVED REPORT EXAM: Comprehensive 2D, Doppler, and color-flow Echocardiogram Patient Location: Out-Patient Box Repairer: Deneen Saucedo RDCS (AE) Indications: Abnormal heart sounds, cardiac heart murmur Other Information Study Quality: Adequate. Technically limited study due to body habitus. Conclusion Normal left ventricular wall thickness and chamber size. Ejection fraction is 58%. Wall motion is n ormal Normal right ventricular size and function Both atria are normal in size There is no structural or hemodynamically significant valvular disease Wall motion Left Ventricle The left ventricle is normal size. The left ventricular systolic function is normal. The left ventric ular ejection fraction is within the normal range. There is normal left ventricular wall thickness. T here is normal LV segmental wall motion. There is no ventricular septal defect visualized. LVEF is 58 %. Right Ventricle The right ventricle is normal size. The right ventricular systolic function is normal. Atria The left atrium size is normal. The right atrium size is normal. The interatrial septum is intact wit h no evidence for an atrial septal defect. Aortic Valve The aortic valve is normal in structure. Aortic valve is trileaflet. There is no aortic valvular sten osis. No aortic regurgitation is present. Mitral Valve The mitral valve is normal in structure. No evidence of mitral valve stenosis. Trace mitral regurgita tion. Tricuspid Valve The tricuspid valve is normal in structure. There is no tricuspid valve stenosis. Trace tricuspid reg urgitation. Unable to assess PA pressure. Pulmonic Valve The pulmonary valve is normal in structure. There is no pulmonic valvular stenosis. There is no pulmo brooks valvular regurgitation. Great Vessels The aortic root is normal in size. Ascending aorta is not well visualized. Aortic arch is normal in c aliber. IVC is normal in size and collapses >50% with inspiration. Pericardium There is no pericardial effusion. 2D Dimensions IVSD d PLAX 0.62 cm M: 0.6-1.2 Ao Root d 2.89 cm M: 3.1 - 3.7 LVPW d PLAX 0.64 cm M: 0.6 - 1.2 LVID d PLAX 4.37 cm M: 4.2 - 5.8 LVDs 3.00 cm M: 2.5 - 4.0 LV EF Teichholz 59.4 % FS 31.34 % LV EDV (Teich) 86.1 mL LV ESV (Teich) 34.9 mL M-Mode TAPSE 1.88 cm (M/F) >1.7 Auto EF LV EDV A4C 79.4 mL LV EDV A2C 116.9 mL LV EDV BP 100.9 mL LV ESV A4C 34.5 mL LV ESV A2C 49.0 mL LV ESV BP 42.5 mL LVEF(%) A4C 56.5 % LVEF(%) A2C 58.0 % LVEF(%) BP 57.9 % LV SV A4C 44.9 ml LV SV A2C 67.8 ml LV SV BP 58.4 ml LV CO A4C 2.8 L/min LV CO A2C 4.2 L/min LV CO BP 3.5 L/min HR A4C 62.18 BPM HR A2C 61.86 BPM LV EDV Index (BP) LA Volume LA Length A4C 3.4 cm LA Length A2C 4.1 cm LA Area A4C s 9.40 cm2 LA Area A2C s 9.66 cm2 LA Vol A4C A-L 22.35 mL LA Vol A2C A-L 19.25 mL LA Vol Biplane A-L 23.0 mL LA Vol/BSA A4C A-L LA Vol/BSA A2C A-L LA Vol/BSA BP A-L 14.0 mL/m2 LA Vol A4C MOD 20.1 mL LA Vol A2C MOD 17.5 mL LA Vol BP MOD 20.3 mL LV Diastology MV E' medial 0.149 (>0.07 m/s) MV E Vmax 0.74 (0.4-1.3 m/s) MV E/E' MED 4.99 (<14) MV A Vmax 0.45 (0.4-1.3 m/s) MV E' lateral 0.149 (>0.1 m/s) E/A Ratio 1.6 MV E/E' LAT 4.99 (<14) MV E' Average 0.149 m/s MV E/E'(average) 4.99 Aortic Valve AoV Vmax 0.71 m/s LVOT Vmax 0.78 m/s AoV Peak Grad 2.0 mmHg LVOT Peak Grad 2.5 mmHg AoV Area (Vmax) 3.61 cm2 LVOT VTI 0.149 m AoV VTI 0.141 m LVOT Mean Grad 1.0 mmHg AoV Mean Raul. 0.53 m/s LVOT SV 48.69 mL AoV Mean Grad 1.2 mmHg LVOT Diam s 2.00 cm AoV Area (VTI) 3.45 cm2 AV Regurg Peak Gr. 2.02 mmHg Velocity Ratio 1.10 Mitral Valve MV DT 172 (160-240 msec) MV Vmax TIPS 0.70 m/s MV Mean Grad 0.7 (<2mmHg) MV VTI 0.255 m Pulmonary Valve PV Vmax 0.76 (0.5-1.5 m/s) RVOT Vmax 0.73 m/s PV Peak Grad 2.3 mmHg RVOT Peak Gr. 2.1 mmHg PV Mean Raul 0.58 m/s RVOT VTI 0.168 m PV Mean Grad 1.5 mmHg RVOT Mean Gr. 1.1 mmHg Tricuspid Valve RA Pressure 3.00 mmHg TV S' 0.15 m/s
== END ==
PROVIDERS: PCP Student in an Organized Health Care Education/Training Program; Visit Provider Surgery
DX: R01.1 Cardiac murmur, unspecified (principal)
CPT/HCPCS: 93306

== ENCOUNTER 2025-03-02 05:19 | Outpatient (CLI) | payer BC, SELFPAY ==
[2025-03-02 09:13] LABS: Abs Immature Grans 0.01 10^3/uL (0.0-0.06); HCT 44.0 % (40.0-50.0); HGB 15.4 g/dL (13.5-17.5); Immature Grans % 0.2 %; MCH 30.8 pg (27.0-33.0); MCHC 35.0 % (32.0-36.0); MCV 88 fL (80-95); MPV 10.1 fL (8.0-11.0); Platelet Count 325 10^3/uL (130-400); RBC 5.00 10^6/uL (4.36-5.78); RDW 11.9 % (11.8-14.1); RDW-SD 38.0 fL; WBC 6.60 10^3/uL (4.4-10.8)
[2025-03-02 09:33] LABS: ALT 15 U/L (16-63); AST 13 U/L (15-37); Albumin 4.1 g/dL (3.4-5.0); Alkaline Phosphatase 63 U/L (46-116); Anion Gap 7.1 mmol/L (3-11); BUN 12 mg/dL (7-18); Bilirubin, Total 1.6 mg/dL (0.2-1.0); CO2 28.9 mmol/L (21.0-32.0); Calcium 8.9 mg/dL (8.5-10.1); Calculated LDL 52 mg/dL (<100); Chloride 103 mmol/L (98-107); Cholesterol 128 mg/dL (<200); Estimated GFR 107.12 (mL/min/1.73m2); Glucose 99 mg/dL (74-106); HDL Cholesterol 62 mg/dL (>or=40); Potassium 4.2 mmol/L (3.5-5.1); Sodium 139 mmol/L (136-145); Total Protein 7.7 g/dL (6.4-8.2); Triglyceride 72 mg/dL (<150)
== END 2025-03-02 05:20 | disposition home or self-care (01) ==
PROVIDERS: PCP Student in an Organized Health Care Education/Training Program; Visit Provider Student in an Organized Health Care Education/Training Program
DX: F41.9 Anxiety disorder, unspecified (principal); Z13.220 Encounter for screening for lipoid disorders
CPT/HCPCS: 36415; 80053; 80061; 85025